=== PATIENT | female | born 1955 | race Caucasian/White ===

== ENCOUNTER → 2017-09-02 | Outpatient (CLI) | payer OTHER ==
[2017-09-02 18:45] LABS: CH 30.3; CHCM 31.8; HCT 41.8 % (34.0-46.0); HDW 2.35; HGB 13.4 gm/dL (11.4-16.0); MCH 30.7 pg (25.0-35.0); MCV 95.9 fL (80.0-100.0); Mean Platelet Volume 8.1; RBC 4.36 m/uL (3.80-5.40); RDW 14.2 % (11.5-15.5); WBC 7.1 k/uL (3.8-10.6)
== END | disposition home or self-care (01) ==
LOC: MMGSC 11:56
PROVIDERS: ATTEND Obstetrics & Gynecology
DX: E03.9 Hypothyroidism, unspecified (principal); R53.83 Other fatigue; N95.1 Menopausal and female climacteric states
CPT/HCPCS: 36415; 82306; 82607; 82670; 83001; 84403; 84439; 84443; 85027; 86376

== ENCOUNTER → 2017-10-13 | Outpatient (CLI) | payer OTHER ==
--- NOTE | 2017-10-14 08:43 | MM ---
Reason for exam: screening (asymptomatic). Last mammogram was performed 1 year and 10 months ago. History: Patient is postmenopausal. Physical Findings: A clinical breast exam by your physician is recommended on an annual basis and results should be correlated with mammographic findings. MG Screening Mammo w CAD Bilateral CC and MLO view(s) were taken. Prior study comparison: December 21, 2015, mammogram, performed at [facility]. There are scattered fibroglandular densities. Finding: There are typically benign dystrophic, round, linear calcifications in the left breast. There is no discrete abnormality. ASSESSMENT: Benign, BI-RAD 2 RECOMMENDATION: Routine screening mammogram of both breasts in 1 year.
== END | disposition home or self-care (01) ==
LOC: RADMAMWWP 14:44
PROVIDERS: ATTEND Obstetrics & Gynecology
DX: Z12.31 Encounter for screening mammogram for malignant neoplasm of breast (principal)
CPT/HCPCS: 77067

== ENCOUNTER → 2018-02-24 | Outpatient (CLI) | payer OTHER ==
[2018-02-24 12:44] LABS: T4, Free (Free Thyroxine) 1.17 ng/dL (0.78-2.19)
== END | disposition home or self-care (01) ==
LOC: LABWHC1 11:32
PROVIDERS: ATTEND Obstetrics & Gynecology
DX: E03.9 Hypothyroidism, unspecified (principal)
CPT/HCPCS: 36415; 84439; 84443

== ENCOUNTER → 2021-01-28 | Outpatient (CLI) | payer MEDICARE ==
--- NOTE | 2021-01-28 12:16 | BD ---
EXAMINATION TYPE: Axial Bone Density DATE OF EXAM: 01/28/2021 COMPARISON: NONE CLINICAL HISTORY: 65-year-old female postmenopausal screening Height: 63 IN Weight: 152 LBS RISK FACTORS HISTORY OF: Active: YES Postmenopausal woman: PARTIAL HYST AGE 55 MEDICATIONS: Thyroid Medications: YES Which medication: Levothyroxine How Long: SINCE 1991 Additional Medications: LEVOTHYROXINE, CALCIUM, VIT D, EXAM MEASUREMENTS: Bone mineral densitometry was performed using the [employer] System. Bone mineral density as measured about the Lumbar spine is: ----- L1-L4(G/cm2): 0.977 T Score Values are as follows: ----- L2: -2.7 ----- L3: -1.5 ----- L4: -1.1 ----- L1-L4: -1.7 Bone mineral density BASELINE Bone mineral density about the R hip (g/cm2): 0.768 Bone mineral density about the L hip (g/cm2): 0.754 T Score values are as follows: -----R Neck: -1.9 -----L Neck: -2.0 -----R Total: -1.1 -----L Total: -1.1 Bone mineral density BASELINE IMPRESSION: Osteopenia (T Score between -2.5 and -1). There is slightly increased risk of fracture and the patient may be considered for treatment. Re-Screen 2-5 years. NOTE: T-SCORE=SD OF THE YOUNG ADULT MEAN.
--- NOTE | 2021-01-29 09:04 | MM ---
Reason for exam: screening (asymptomatic). Last mammogram was performed 3 years and 4 months ago. History: Patient is postmenopausal. Physical Findings: A clinical breast exam by your physician is recommended on an annual basis and results should be correlated with mammographic findings. MG 3D Screening Mammo W/Cad Bilateral CC and MLO view(s) were taken. Prior study comparison: October 13, 2017, bilateral MG screening mammo w CAD. December 21, 2015, mammogram, performed at [facility]. There are scattered fibroglandular densities. There are benign appearing round linear calcifications bilaterally. There is no discrete abnormality. ASSESSMENT: Benign, BI-RAD 2 RECOMMENDATION: Routine screening mammogram of both breasts in 1 year.
== END | disposition home or self-care (01) ==
LOC: RADMAMWWP 07:21
PROVIDERS: ATTEND Nurse Practitioner Family
DX: Z12.31 Encounter for screening mammogram for malignant neoplasm of breast (principal); M85.89 Other specified disorders of bone density and structure, multiple sites; Z78.0 Asymptomatic menopausal state
CPT/HCPCS: 77063; 77067; 77080

== ENCOUNTER 2021-05-18 19:44 | Emergency (ER) | payer MEDICARE ==
[2021-05-18 20:08] VITALS: BP 168/96; PULSE 93; RESP 16; TEMP 98.1
[2021-05-18] MEDS ORDERED: TOPICAL SKIN ADHESIVE 1 EACH AMP TOPICAL ONE (20:17)
[2021-05-18] MEDS ORDERED: LIDOCAINE/EPINEPHR/TETRACAINE 5 ML BOTTLE TOPICAL ONE (20:17)
--- NOTE | 2021-05-18 20:24 | ED ---
Wound/Laceration HPI - General Chief Complaint: Wound/Laceration Stated Complaint: l hand laceration Time Seen by Provider: 05/18/21 20:00 Source: patient Mode of arrival: ambulatory Limitations: no limitations - History of Present Illness Initial Comments: 66 year-old female patient presents to the emergency department for evaluation of left thumb laceration. Patient states she was cleaning a knife when she accidentally cut herself. Patient states there was a lot of blood so she put on a bandaid and came in to be evaluated. She reports mild pain to the finger. Denies any numbness or tingling. States last tetanus was in 2019. She denies any other injuries or concerns. - Related Data Allergies Allergy/AdvReac Type Severity Reaction Status Date / Time No Known Allergies Allergy Verified 05/18/21 20:01 Review of Systems ROS Statement: Those systems with pertinent positive or pertinent negative responses have been documented in the HPI. ROS Other: All systems not noted in ROS Statement are negative. Past Medical History Past Medical History: No Reported History History of Any Multi-Drug Resistant Organisms: None Reported Past Surgical History: Hysterectomy, Orthopedic Surgery Past Psychological History: No Psychological Hx Reported Smoking Status: Never smoker Past Alcohol Use History: Rare Past Drug Use History: None Reported General Exam Limitations: no limitations General appearance: alert, in no apparent distress, other (Physical well- developed, well-nourished adult female patient in no acute distress. Vital signs upon presentation are temperature 98.1F, pulse 93, respirations 16, blood pressure 168/96, pulse ox 93% on room air.) Respiratory exam: Present: normal lung sounds bilaterally. Absent: respiratory distress, wheezes, rales, rhonchi, stridor Cardiovascular Exam: Present: regular rate, normal rhythm, normal heart sounds. Absent: systolic murmur, diastolic murmur, rubs, gallop, clicks Extremities exam: Present: full ROM, normal capillary refill, other (2cm laceration noted to the dorsal left thum. Does involve proximal nail fold, but not the nail. Skin is pink, warm, and dry. Cap refill <3 seconds. Radial pulse 2+). Absent: normal inspection, tenderness, pedal edema, joint swelling, calf tenderness Neurological exam: Present: alert, oriented X3, CN II-XII intact Psychiatric exam: Present: normal affect, normal mood Skin exam: Present: warm, dry, intact, normal color. Absent: rash Course Vital Signs 05/18/21 20:01 Temperature 98.1 F Pulse Rate 93 Respiratory 16 Rate Blood Pressure 168/96 O2 Sat by Pulse 93 L Oximetry Procedures - Laceration Laceration #1 Consent Obtained: verbal consent Indication: laceration Site: hand (left thumb) Description: linear Depth: simple, single layer Type of Sutures: other (exofin skin adhesive) Patient Tolerated Procedure: well, no complications Medical Decision Making - Medical Decision Making 66 year-old female patient presented to the emergency department today for evaluation of laceration to left thumb. Physical examination did reveal small 1 cm laceration to the left thumb involving the proximal nail fold but not the nail. Wound was cleansed, I'll let solution applied. Repaired with skin adhesive glue. Did apply a finger splint. To be discharged home with the primary care physician for recheck in 1-2 days. We discussed signs or symptoms of infection. Return parameters were discussed in detail. She verbalizes understanding and agrees with this plan. My attending is Dr. Mueller. Disposition Clinical Impression: Laceration of left thumb Disposition: HOME SELF-CARE Condition: Good Instructions (If sedation given, give patient instructions): Laceration (ED), Skin Adhesive Care (ED) Additional Instructions: Follow-up with the primary care physician for recheck in 1-2 days. Monitor for signs or symptoms of infection including but not limited to redness, drainage of pus, fever, or chills. Return for any new, worsening, or concerning symptoms. Is patient prescribed a controlled substance at d/c from ED?: No Referrals: Meredith Guo MD [Primary Care Provider] - 1-2 days Time of Disposition: 20:58
== END 2021-05-18 21:05 | disposition home or self-care (01) ==
LOC: EC 19:44
DX: S61.012A Laceration without foreign body of left thumb without damage to nail, initial encounter (principal); W26.0XXA Contact with knife, initial encounter
CPT/HCPCS: 12001; 99283

== ENCOUNTER → 2021-07-09 | Outpatient (CLI) | payer MEDICARE ==
--- NOTE | 2021-07-09 14:45 | US ---
EXAMINATION TYPE: US thyroid st tissue head/neck DATE OF EXAM: 07/09/2021 COMPARISON: NONE CLINICAL HISTORY: 66-year-old female R22.0 SWELLING/MASS. TECHNIQUE: Multiple sonographic images of the thyroid gland are obtained. FINDINGS: GLAND SIZE: Right Lobe: 3.7 x 1.3 x 1.0 cm Overall Parenchyma: heterogenous Left Lobe: 3.1 x 0.9 x 0.9 cm Overall Parenchyma: heterogeneous Isthmus Thickness: 0.2 cm NODULES RIGHT: # of nodules measured on right: 0 LEFT: # of nodules measured on left: 0 ISTHMUS: # of nodules measured in the isthmus: 0 Bilateral neck scanned, no evidence of lymphadenopathy. IMPRESSION: Slightly heterogeneous and small size of the thyroid gland may reflect chronic hypothyroidism. Clinic ally correlate. No discrete nodule.
--- NOTE | 2021-07-09 14:57 | US ---
EXAMINATION TYPE: US extremity nonvasc mass RT DATE OF EXAM: 07/09/2021 COMPARISON: NONE CLINICAL HISTORY: 66-year-old female R22.1 MASS. TECHNIQUE: Targeted ultrasound examination along the right calf at the palpable site. FINDINGS: At right calf palpable is a 1.4 x 0.6 x 1.3cm hypoechoic oval, circumscribed mass. This is located in the subcutaneous adipose layer and shows no internal vascularity. Additional history provided by the ob gyn physician assistant: Patient has had previous lipomas removed from this ar ea when she was 4 and when she was 13. IMPRESSION: Patient's palpable site along the inferior right calf corresponds to a 1.4 cm oval mass in the subcut aneous adipose layer. The patient reports having previous lipomas removed from this area as a child. Current findings also likely represent a subcutaneous lipoma. Recommend 6 month follow-up ultrasound to reassess. If the area is symptomatic or growth is noted, surgical evaluation can be considered.
== END | disposition home or self-care (01) ==
LOC: RADUSWWP 12:46
PROVIDERS: ATTEND Family Medicine
DX: R22.0 Localized swelling, mass and lump, head (principal); R22.1 Localized swelling, mass and lump, neck
CPT/HCPCS: 76536

== ENCOUNTER → 2022-05-21 | Outpatient (CLI) | payer MEDICARE ==
--- NOTE | 2022-05-22 09:20 | US ---
EXAMINATION TYPE: US extremity nonvasc complete RT DATE OF EXAM: 05/21/2022 COMPARISON: 07/09/2021 CLINICAL HISTORY: 67-year-old female D17.20 LIPOMA OF LOWER EXT. Right ankle palpable area. Patient r eports the previous posteriorly located lipoma having been excised in the interval. TECHNIQUE: Targeted scanning anterior aspect of the right ankle at patient's area of concern. FINDINGS: No discrete lesion is identified in the superficial tissues at the patient directed palpable site aryan ng the anterior ankle and anterior aspect of the distal leg. IMPRESSION: Unable to identify a discrete lesion in the superficial tissues along the patient directed palpable s ite anterior right ankle. This can be followed clinically. If any enlargement is noted, the area coul d be rescanned.
== END | disposition home or self-care (01) ==
LOC: RADUSWWP 15:24
PROVIDERS: ATTEND Internal Medicine
DX: D17.20 Benign lipomatous neoplasm of skin and subcutaneous tissue of unspecified limb (principal)

== ENCOUNTER → 2023-01-19 | Outpatient (CLI) | payer MEDICARE ==
--- NOTE | 2023-01-19 22:54 | BD ---
EXAMINATION TYPE: Axial Bone Density DATE OF EXAM: 01/19/2023 CLINICAL HISTORY: 67 year old Female. ICD-10 CODE: M85.80 Disorder of bone Height: 63.5 Weight: 147.8 FRAX RISK QUESTIONS: Alcohol (3 or more units per day): no Family History (Parent hip fracture): no Glucocorticoids (More than 3mos): no (Ex: prednisone, prednisolone, methylprednisolone, dexamethasone, and hydrocortisone). History of Fracture in Adulthood: no Secondary Osteoporosis: 1. Type 1 Diabetes: no 2. Hyperthyroidism: no 3. Menopause before 45: no 4. Malnutrition: no 5. Chronic liver disease: no Rheumatoid Arthritis: no Current Tobacco Use: no RISK FACTORS HISTORY OF: Surgery to Spine/Hip(right/left)/Wrist (right/left): no Family History of Osteoporosis: no Active: yes Diet low in dairy products/other sources of calcium: yes Postmenopausal woman: yes Lost more than 2 inches in height since high school: no MEDICATIONS: Thyroid Medications: thyroid How Lon years Additional History: EXAM MEASUREMENTS: Bone mineral densitometry was performed using the [employer]. Bone mineral density as measured about the Lumbar spine is: ----- L1-L4(G/cm2): 0.977 T Score Values are as follows: ----- L1: -1.9 ----- L2: -1.9 ----- L3: -1.7 ----- L4: -1.5 ----- L1-L4: -1.7 Z Score Values are as follows: ----- L1: -0.4 ----- L2: -0.3 ----- L3: -0.1 ----- L4: 0.0 ----- L1-L4: -0.2 Bone mineral density has: 0.0 % since study of: 01.28.2021 Bone mineral density about the R hip (g/cm2): 0.8450.874 Bone mineral density about the L hip (g/cm2): 0.874 T Score values are as follows: -----R Neck: -1.9 -----L Neck: -1.9 -----R Total: -1.3 -----L Total: -1.1 Z Score values are as follows: -----R Neck: -0.4 -----L Neck: -0.4 -----R Total: 0.0 -----L Total: 0.2 Bone mineral density has: decreased -0.2 % since study of: 01.28.2021 FRAX%s: The graph provided illustrates a 11.4% chance for a major osteoporotic fx and a 2.0% chance f or the hips probability for fx in 10 years time. IMPRESSION: Osteopenia (T Score between -2.5 and -1). There is slightly increased risk of fracture and the patient may be considered for treatment. Re-Screen 2-5 years. NOTE: T-SCORE=SD OF THE YOUNG ADULT MEAN.
--- NOTE | 2023-01-20 09:57 | MM ---
Reason for Exam: Screening (asymptomatic). Last screening mammogram was performed 12 month(s) ago. Patient History: Menarche at age 13. First Full-Term at age 17. Hysterectomy at age 55. Postmenopausal. Sister had breast cancer, age 68. Risk Values: Natasha 5 year model risk: 2.9%. NCI Lifetime model risk: 9.3%. Prior Study Comparison: 10/13/2017 Bilateral Screening Mammogram, [facility]. 01/28/2021 Bilateral Screening Mammogram, [facility]. 01/16/2022 Bilateral Screening Mammogram, [facility]. Tissue Density: There are scattered fibroglandular densities. Findings: Analyzed By CAD. New microcalcifications inner central left breast. Additional views are recommended to include spot magnification compression views. No evidence for mass or distortion. Overall Assessment: Incomplete: need additional imaging evaluation, BI-RAD 0 Management: Diagnostic Mammogram of the left breast. A clinical breast exam by your physician is recommended on an annual basis and results should be correlated with mammographic findings. Electronically signed and approved by: Tc Jesus M.D. Radiologis
== END | disposition home or self-care (01) ==
LOC: RADMAMWWP 15:53
PROVIDERS: ATTEND Internal Medicine
DX: Z12.31 Encounter for screening mammogram for malignant neoplasm of breast (principal); M85.89 Other specified disorders of bone density and structure, multiple sites; Z78.0 Asymptomatic menopausal state; Z80.3 Family history of malignant neoplasm of breast
CPT/HCPCS: 77063; 77067; 77080

== ENCOUNTER → 2023-01-26 | Outpatient (CLI) | payer MEDICARE ==
--- NOTE | 2023-01-26 15:19 | MM ---
Reason for Exam: Additional evaluation requested from abnormal screening. Last screening mammogram was performed less than 1 month ago. Patient History: Menarche at age 13. First Full-Term at age 17. Hysterectomy at age 55. Postmenopausal. Sister had breast cancer, age 68. Risk Values: Natasha 5 year model risk: 2.9%. NCI Lifetime model risk: 9.3%. Prior Study Comparison: 01/28/2021 Bilateral Screening Mammogram, [facility]. 01/16/2022 Bilateral Screening Mammogram, [facility]. 01/19/2023 Bilateral MG 3D screening mammo w/cad, [facility]. Tissue Density: Left: There are scattered fibroglandular densities. Findings: Analyzed By CAD. Indeterminate microcalcifications left breast central position 5 cm from the nipple. Overall Assessment: Suspicious, BI-RAD 4 Management: Stereotactic Core Biopsy of the left breast. A clinical breast exam by your physician is recommended on an annual basis and results should be correlated with mammographic findings. This exam should not preclude additional follow-up of suspicious palpable abnormalities. Results were given to the patient verbally at the time of exam. Electronically signed and approved by: Tc Jesus M.D. Radiologis
== END | disposition home or self-care (01) ==
LOC: RADMAMWWP 10:04
PROVIDERS: ATTEND Internal Medicine
DX: R92.8 Other abnormal and inconclusive findings on diagnostic imaging of breast (principal); Z78.0 Asymptomatic menopausal state; Z80.3 Family history of malignant neoplasm of breast
CPT/HCPCS: 77065; G0279; 77061

== ENCOUNTER → 2023-02-19 | Day surgery (SDC) | payer MEDICARE ==
[2023-02-19 07:22] VITALS: RESP 12
--- NOTE | 2023-02-19 08:04 | P.GSHP ---
History of Present Illness H&P Date: 02/19/23 Chief Complaint: Microcalcifications of concern in the left breast Larisa is a 67-year-old white female seen in consultation for Dr. Schuler regarding microcalcifications of concern in the left breast. She underwent a bilateral mammogram on 01-19-23 after which additional views of the left breast [place] [id number]. On these additional views indeterminate microcalcifications in the left breast central position were identified. These were considered suspicious and stereotactic core biopsy was recommended. She does not feel any lumps masses or nodules of concern in either breast. She has never had any surgery on her breast. She is not complaining of any trauma or infection in her breast. She is not complaining of any nipple discharge or skin changes. caffiene: 1 cup/day nicotien: none chocolate: occasional BCP: 4 years hormoens: none Family History: a family of 12 children with 6 sisters two sisters with breast cancer, dx in their 60's, no genetic testing father: lung cancer Hormonal History: menarche: 13 , breast fed: no, age at first : 18 menopause: hysterectomy at 57 left ovaries no cancer Surgical History: hysterectomy ankle right Medical History: hypothyroid SociaL History: nicotine: none alcohol: none drugs: none - Constitutional Constitutional: Denies chills, Denies fever - EENT Eyes: denies blurred vision, denies pain Ears: deny: decreased hearing, tinnitus Ears, nose, mouth and throat: Denies headache, Denies sore throat - Breasts Breasts: bilateral: as per HPI - Cardiovascular Cardiovascular: Denies chest pain, Denies shortness of breath - Respiratory Respiratory: Denies cough, Denies 7 - Gastrointestinal Gastrointestinal: Denies abdominal pain, Denies diarrhea, Denies nausea, Denies vomiting - Genitourinary (Female) Genitourinary: Denies dysuria, Denies hematuria - Menstruation Menstruation: Reports postmenopausal - Musculoskeletal Musculoskeletal: Reports myalgias - Integumentary Integumentary: Denies pruritus, Denies rash - Neurological Neurological: Denies numbness, Denies weakness - Psychiatric Psychiatric: Denies anxiety, Denies depression - Endocrine Endocrine: Reports as per HPI - Hematologic/Lymphatic Comment: none - Allergic/Immunologic Allergic/Immunologic: Reports as per HPI Past Medical History Past Medical History: Thyroid Disorder History of Any Multi-Drug Resistant Organisms: None Reported Past Surgical History: Hysterectomy, Orthopedic Surgery Additional Past Surgical History / Comment(s): "fatty tumor" removed from leg at age 13 Past Anesthesia/Blood Transfusion Reactions: No Reported Reaction Past Psychological History: No Psychological Hx Reported Smoking Status: Never smoker Past Alcohol Use History: Rare Past Drug Use History: None Reported Medications and Allergies Home Medications Medication Instructions Recorded Confirmed Type Levothyroxine Sodium [Synthroid] 125 mcg PO DAILY 02/05/23 02/19/23 History Biotin [Biotin Disolve] 5,000 mcg PO DAILY 02/19/23 02/19/23 History Calcium Carbonate [Calcium] 600 mg PO DAILY 02/19/23 02/19/23 History Cholecalciferol [Vitamin D3 (25 25 mcg PO DAILY 02/19/23 02/19/23 History Mcg = 1000 Iu)] Cyanocobalamin (Vitamin B-12) 1,000 mcg PO DAILY 02/19/23 02/19/23 History [Vitamin B-12] Multivitamin [Multivitamins Adult 1 each PO DAILY 02/19/23 02/19/23 History Gummies] Zinc Gluconate [Zinc] 50 mg PO DAILY 02/19/23 02/19/23 History Allergies Allergy/AdvReac Type Severity Reaction Status Date / Time No Known Allergies Allergy Verified 02/19/23 07:32 Surgical - Exam Vital Signs Temp Pulse Resp BP 98 F 69 12 120/70 02/19/23 07:10 02/19/23 07:10 02/19/23 07:10 02/19/23 07:10 - General no distress - Eyes normal ocular movement - Neck trachea midline - Respiratory normal respiratory effort, clear to auscultation - Cardiovascular Rhythm: regular Heart Sounds: normal: S1, S2 - Abdomen Abdomen: soft, non tender, no guarding, no rigid, no rebound - Integumentary normal turgor - Neurologic no disoriented, no combative - Musculoskeletal normal gait, normal posture - Psychiatric oriented to time, oriented to person, oriented to place, speech is normal, memory intact Breast Exam: BRA: 34D Inspection: Bilateral grade 2/3 ptosis Palpation: Right breast: Multiple positional exam fibrocystic changes no dominant masses or nodules of concern Right axilla: No adenopathy of concern Left breast: Multiple positional exam fibrocystic changes no dominant masses or notches of concern Left axilla: No adenopathy of concern Results Mammogram reviewed with Dr. Ruiz Assessment and Plan Assessment: Impression: Microcalcifications of concern left breast Hypothyroidism Plan: Stereotactic core biopsy left breast Risks and benefits of the procedure discussed with the patient. Risks include but are not limited to bleeding, infection, reaction to the anesthetic. If the specimen were felt to be discordant and further tissue acquisition may be necessary. The patient understands and wishes to proceed. Cc: Dr. Schuler
[2023-02-19 08:44] VITALS: BP 145/70; PULSE 63; TEMP 98.7
--- NOTE | 2023-02-20 07:54 | MM ---
Date of Procedure: 02/19/23 Preoperative Diagnosis: Microcalcifications of concern in left breast Postoperative Diagnosis: Same Procedure(s) Performed: Left breast stereotactic core biopsy Anesthesia: local Surgeon: Maria Esther Villegas Pathology: other (Breast tissue, radiographic specimen reveals microcalcifications of concern) Condition: stable Disposition: same day Indications for Procedure: Microcalcifications left breast central portion of concern Operative Findings: Radiographic of specimen reveals microcalcifications of concern Description of Procedure: The patient is a 67-year-old white female seen in consultation for Dr. Schuler regarding new microcalcifications in the midportion of the left breast. The patient was recommended to undergo a left breast stereotactic core biopsy. Risk and benefits of the procedure were discussed with the patient. Risks include but are not limited to bleeding, infection, reaction to the anesthetic. If the tissue specimen were felt to be discordant then further tissue acquisition may be necessary. The patient was taken to the stereotactic core biopsy room. She was positioned prone on the lo rad table. A medial to lateral approach was utilized. A metal container maker film was obtained. The calcifications of concern were identified. The breast was prepped using Betadine. The lesion was targeted. 20 mL of half percent lidocaine with epinephrine and 10 mL of 1% lidocaine plain were used to anesthetize the area of concern. A 9-gauge vacuum-assisted core rotating biopsy needle was driven to the correct coordinates. A prefire film was obtained. The needle was noted to be in the correct location. The needle was fired. A post- fire film was obtained. The needle was noted to be in the correct location. Eight core biopsy specimens were obtained. Radiograph of the specimens revealed the area of concern had been sampled with calcifications in the specimen. A secure john top hat clip was placed. Radiograph revealed the clip to be in the correct location. The patient tolerated the procedure in stable condition. The specimen was sent to pathology. The patient will follow up with Dr. Yanez next week. [facility]US[facility]aren
== END ==
LOC: RADMAMWWP 07:05
PROVIDERS: ATTEND Surgery
DX: D05.12 Intraductal carcinoma in situ of left breast (principal); N64.1 Fat necrosis of breast; E03.9 Hypothyroidism, unspecified; F10.20 Alcohol dependence, uncomplicated; Z80.0 Family history of malignant neoplasm of digestive organs; Z79.890 Hormone replacement therapy
CPT/HCPCS: 88305; 88342; 88341; 19081; A4648; J2001

== ENCOUNTER → 2023-02-19 | Outpatient (CLI) | payer MEDICARE ==
[2023-02-19 07:37] VITALS: BP 113/70; PULSE 65; RESP 16; TEMP 98.4
--- NOTE | 2023-02-19 08:37 | P.PCN ---
Date of Procedure: 02/19/23 Preoperative Diagnosis: Microcalcifications of concern in left breast Postoperative Diagnosis: Same Procedure(s) Performed: Left breast stereotactic core biopsy Anesthesia: local Surgeon: Maria Esther Villegas Pathology: other (Breast tissue, radiographic specimen reveals microcalcifications of concern) Condition: stable Disposition: same day Indications for Procedure: Microcalcifications left breast central portion of concern Operative Findings: Radiographic of specimen reveals microcalcifications of concern Description of Procedure: The patient is a 67-year-old white female seen in consultation for Dr. Schuler regarding new microcalcifications in the midportion of the left breast. The patient was recommended to undergo a left breast stereotactic core biopsy. Risk and benefits of the procedure were discussed with the patient. Risks include but are not limited to bleeding, infection, reaction to the anesthetic. If the tissue specimen were felt to be discordant then further tissue acquisition may be necessary. The patient was taken to the stereotactic core biopsy room. She was positioned prone on the lo rad table. A medial to lateral approach was utilized. A military pay clerk film was obtained. The calcifications of concern were identified. The breast was prepped using Betadine. The lesion was targeted. 20 mL of half percent lidocaine with epinephrine and 10 mL of 1% lidocaine plain were used to anesthetize the area of concern. A 9-gauge vacuum-assisted core rotating biopsy needle was driven to the correct coordinates. A prefire film was obtained. The needle was noted to be in the correct location. The needle was fired. A post- fire film was obtained. The needle was noted to be in the correct location. Eight core biopsy specimens were obtained. Radiograph of the specimens revealed the area of concern had been sampled with calcifications in the specimen. A secure john top hat clip was placed. Radiograph revealed the clip to be in the correct location. The patient tolerated the procedure in stable condition. The specimen was sent to pathology. The patient will follow up with Dr. Yanez next week.
== END ==
LOC: WWCWWP 07:05
PROVIDERS: ATTEND Surgery
DX: R92.0 Mammographic microcalcification found on diagnostic imaging of breast (principal)

== ENCOUNTER → 2023-03-05 | Outpatient (CLI) | payer MEDICARE ==
[2023-03-05 10:05] VITALS: BP 134/71; PULSE 68; RESP 16; TEMP 97.7
--- NOTE | 2023-03-05 10:37 | P.PN ---
Subjective Progress Note Date: 03/05/23 Principal diagnosis: DCIS left breast Larisa is a 67-year-old white female seen in consultation for Dr. Schuler regarding microcalcifications of concern in the left breast. She underwent a bilateral mammogram on 01-19-23 after which additional views of the left [place] [id number]. On these additional views indeterminate microcalcifications in the left breast central position were identified. These were considered suspicious and stereotactic core biopsy was recommended. She does not feel any lumps masses or nodules of concern in either breast. She has never had any surgery on her breast. She is not complaining of any trauma or infection in her breast. She is not complaining of any nipple discharge or skin changes. Sterotactic core biopsy was done on 02-19-23 and was + for DCIS, ER+, Pr-. She tolerated the biopsy without difficulty. caffiene: 1 cup/day nicotien: none chocolate: occasional BCP: 4 years hormoens: none Family History: a family of 12 children with 6 sisters two sisters with breast cancer, dx in their 60's, no genetic testing father: lung cancer Hormonal History: menarche: 13 , breast fed: no, age at first : 18 menopause: hysterectomy at 57 left ovaries no cancer Surgical History: hysterectomy ankle right Medical History: hypothyroid SociaL History: nicotine: none alcohol: none drugs: none - Constitutional Constitutional: Denies chills, Denies fever - EENT Eyes: denies blurred vision, denies pain Ears: deny: decreased hearing, tinnitus Ears, nose, mouth and throat: Denies headache, Denies sore throat - Breasts Breasts: bilateral: as per HPI - Cardiovascular Cardiovascular: Denies chest pain, Denies shortness of breath - Respiratory Respiratory: Denies cough, Denies 7 - Gastrointestinal Gastrointestinal: Denies abdominal pain, Denies diarrhea, Denies nausea, Denies vomiting - Genitourinary (Female) Genitourinary: Denies dysuria, Denies hematuria - Menstruation Menstruation: Reports postmenopausal - Musculoskeletal Musculoskeletal: Reports myalgias - Integumentary Integumentary: Denies pruritus, Denies rash - Neurological Neurological: Denies numbness, Denies weakness - Psychiatric Psychiatric: Denies anxiety, Denies depression - Endocrine Endocrine: Reports as per HPI - Hematologic/Lymphatic Comment: none - Allergic/Immunologic Allergic/Immunologic: Reports as per HPI Past Medical History Past Medical History: Thyroid Disorder History of Any Multi-Drug Resistant Organisms: None Reported Past Surgical History: Hysterectomy, Orthopedic Surgery Additional Past Surgical History / Comment(s): "fatty tumor" removed from leg at age 13 Past Anesthesia/Blood Transfusion Reactions: No Reported Reaction Past Psychological History: No Psychological Hx Reported Smoking Status: Never smoker Past Alcohol Use History: Rare Past Drug Use History: None Reported Medications and Allergies Home Medications Medication Instructions Recorded Confirmed Type Levothyroxine Sodium [Synthroid] 125 mcg PO DAILY 02/05/23 02/19/23 History Biotin [Biotin Disolve] 5,000 mcg PO DAILY 02/19/23 02/19/23 History Calcium Carbonate [Calcium] 600 mg PO DAILY 02/19/23 02/19/23 History Cholecalciferol [Vitamin D3 (25 25 mcg PO DAILY 02/19/23 02/19/23 History Mcg = 1000 Iu)] Cyanocobalamin (Vitamin B-12) 1,000 mcg PO DAILY 02/19/23 02/19/23 History [Vitamin B-12] Multivitamin [Multivitamins Adult 1 each PO DAILY 02/19/23 02/19/23 History Gummies] Zinc Gluconate [Zinc] 50 mg PO DAILY 02/19/23 02/19/23 History Allergies Allergy/AdvReac Type Severity Reaction Status Date / Time No Known Allergies Allergy Verified 02/19/23 07:32 Objective - Vital Signs Vital signs: Vital Signs Temp 97.7 F 03/05/23 10:03 Pulse 68 03/05/23 10:03 Resp 16 03/05/23 10:03 BP 134/71 03/05/23 10:03 Pulse Ox 98 03/05/23 10:03 FiO2 Intake & Output 03/04/23 03/05/23 03/05/23 18:59 06:59 18:59 Weight 67.132 kg - Constitutional General appearance: Present: cooperative - EENT Eyes: Present: EOMI ENT: Present: hearing grossly normal - Neck Neck: Present: normal ROM - Respiratory Respiratory: bilateral: CTA - Cardiovascular Rhythm: regular Heart sounds: normal: S1, S2 - Integumentary Integumentary Comment(s): Biopsy site left breast clean and dry, no evidence of any ecchymosis or hematoma Integumentary: Present: normal turgor - Musculoskeletal Musculoskeletal: Present: gait normal - Psychiatric Psychiatric: Present: A&O x's 3, appropriate affect, intact judgment & insight - Additional findings Additional findings: Breast examination from [address] Bra size 34D Inspection: Bilateral grade 2/3 ptosis Palpation: Right breast: Multi-positional exam fibrocystic changes no dominant masses or nodules of concern Right axilla: No adenopathy of concern Left breast: Multi-positional exam fibrocystic changes no dominant masses or nodules of concern Left axilla: No adenopathy of concern Assessment and Plan Assessment: Impression: Left breast DCIS ER positive ID negative Plan: Presentation of case at tumor board Cc: Dr. Schuler
== END ==
LOC: WWCWWP 09:54
PROVIDERS: ATTEND Surgery
DX: D05.12 Intraductal carcinoma in situ of left breast (principal); E03.9 Hypothyroidism, unspecified; Z90.710 Acquired absence of both cervix and uterus; Z79.890 Hormone replacement therapy

== ENCOUNTER → 2023-04-10 | Outpatient (CLI) | payer MEDICARE ==
--- NOTE | 2023-04-10 10:13 | P.PN ---
Subjective Progress Note Date: 04/10/23 Principal diagnosis: DCIS left breast Subjective Progress Note Date: 04-10-23 Principal diagnosis: DCIS left breast Larisa is a 67-year-old white female seen in consultation for Dr. Schuler regarding microcalcifications of concern in the left breast. She underwent a bilateral mammogram on 01-19-23 after which additional views of the left breast was recommended. This was performed on . On these additional views indeterminate microcalcifications in the left breast central position were identified. These were considered suspicious and stereotactic core biopsy was recommended. She does not feel any lumps masses or nodules of concern in either breast. She has never had any surgery on her breast. She is not complaining of any trauma or infection in her breast. She is not complaining of any nipple discharge or skin changes. Sterotactic core biopsy was done on 02-19-23 and was + for DCIS, ER+, Pr-. She tolerated the biopsy without difficulty. 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 note radiation oncology 03-10-23 reviewed caffiene: 1 cup/day nicotien: none chocolate: occasional BCP: 4 years hormoens: none Family History: a family of 12 children with 6 sisters two sisters with breast cancer, dx in their 60's, no genetic testing father: lung cancer Hormonal History: menarche: 13 , breast fed: no, age at first : 18 menopause: hysterectomy at 57 left ovaries no cancer Surgical History: hysterectomy ankle right Medical History: hypothyroid SociaL History: nicotine: none alcohol: none drugs: none - Constitutional Constitutional: Denies chills, Denies fever - EENT Eyes: denies blurred vision, denies pain Ears: deny: decreased hearing, tinnitus Ears, nose, mouth and throat: Denies headache, Denies sore throat - Breasts Breasts: bilateral: as per HPI - Cardiovascular Cardiovascular: Denies chest pain, Denies shortness of breath - Respiratory Respiratory: Denies cough - Gastrointestinal Gastrointestinal: Denies abdominal pain, Denies diarrhea, Denies nausea, Denies vomiting - Genitourinary (Female) Genitourinary: Denies dysuria, Denies hematuria - Menstruation Menstruation: Reports postmenopausal - Musculoskeletal Musculoskeletal: Reports myalgias - Integumentary Integumentary: Denies pruritus, Denies rash - Neurological Neurological: Denies numbness, Denies weakness - Psychiatric Psychiatric: Denies anxiety, Denies depression - Endocrine Endocrine: Reports as per HPI - Hematologic/Lymphatic Comment: none - Allergic/Immunologic Allergic/Immunologic: Reports as per HPI Past Medical History Past Medical History: Thyroid Disorder History of Any Multi-Drug Resistant Organisms: None Reported Past Surgical History: Hysterectomy, Orthopedic Surgery Additional Past Surgical History / Comment(s): "fatty tumor" removed from leg at age 13 Past Anesthesia/Blood Transfusion Reactions: No Reported Reaction Past Psychological History: No Psychological Hx Reported Smoking Status: Never smoker Past Alcohol Use History: Rare Past Drug Use History: None Reported Medications and Allergies Home Medications Medication Instructions Recorded Confirmed Type Levothyroxine Sodium [Synthroid] 125 mcg PO DAILY 02/05/23 02/19/23 History Biotin [Biotin Disolve] 5,000 mcg PO DAILY 02/19/23 02/19/23 History Calcium Carbonate [Calcium] 600 mg PO DAILY 02/19/23 02/19/23 History Cholecalciferol [Vitamin D3 (25 25 mcg PO DAILY 02/19/23 02/19/23 History Mcg = 1000 Iu)] Cyanocobalamin (Vitamin B-12) 1,000 mcg PO DAILY 02/19/23 02/19/23 History [Vitamin B-12] Multivitamin [Multivitamins Adult 1 each PO DAILY 02/19/23 02/19/23 History Gummies] Zinc Gluconate [Zinc] 50 mg PO DAILY 02/19/23 02/19/23 History Allergies Allergy/AdvReac Type Severity Reaction Status Date / Time No Known Allergies Allergy Verified 02/19/23 07:32 Objective - Constitutional General appearance: Present: cooperative - EENT Eyes: Present: EOMI ENT: Present: hearing grossly normal - Neck Neck: Present: normal ROM - Respiratory Respiratory: bilateral: CTA - Cardiovascular Rhythm: regular Heart sounds: normal: S1, S2 - Gastrointestinal General gastrointestinal: Present: soft - Integumentary Integumentary: Present: normal turgor - Musculoskeletal Musculoskeletal: Present: gait normal - Psychiatric Psychiatric: Present: A&O x's 3, appropriate affect, intact judgment & insight - Additional findings Additional findings: Bra size 34D Inspection: Bilateral grade 2/3 ptosis Palpation: Right breast: Multi-positional exam fibrocystic changes no dominant masses or nodules of concern Right axilla: No adenopathy of concern Left breast: Multi-positional exam fibrocystic changes no dominant masses or nodules of concern Left axilla: No adenopathy of concern Assessment and Plan Assessment: Impression: Left breast DCIS ER positive [place] negative Presentation of case at tumor board on 03-17-23 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 Schuler Treatment options range from Surgery: Lumpectomy plus radiation, versus mastectomy plus or minus reconstruction. Additionally we have talked about sentinel node biopsy and the fact that this is high-grade DCIS. The patient would like to have this done. Radiation oncology, we have discussed this Medical oncology: We have discussed chemotherapy, hormonal therapy, and immunotherapy. We have discussed that if this is noninvasive that she will most likely only have hormone therapy. Cc: Dr. Schuler
[2023-04-10 10:14] VITALS: BP 134/67; PULSE 66; RESP 16; TEMP 98
== END ==
LOC: WWCWWP 09:15
PROVIDERS: ATTEND Surgery
DX: D05.12 Intraductal carcinoma in situ of left breast (principal); R06.02 Shortness of breath; E03.9 Hypothyroidism, unspecified; Z17.0 Estrogen receptor positive status [ER+]; Z80.3 Family history of malignant neoplasm of breast; Z79.890 Hormone replacement therapy; Z90.710 Acquired absence of both cervix and uterus

== ENCOUNTER 2023-04-21 10:53 | Day surgery (SDC) | payer MEDICARE ==
[2023-04-16 08:50] VITALS: BMI 25.8
[~2023-04-21 10:53] MED LIST: DEXAMETHASONE SOD PHOSPHATE 4 MG/ML 1 ML VIAL IV ONE; HEPARIN SODIUM,PORCINE/PF 5,000 UNIT/0.5 ML SYRINGE SQ PRN; HYDROmorphone 0.5 MG/0.5 ML SYRINGE IVP PRN; LACTATED RINGERS 1,000 ML IV SCH; LIDOCAINE 1% (10MG/ML) FOR IV START INTRADERMA PRN; ONDANSETRON 4 MG/2 ML VIAL IVP ONE; Pre Op ABX Message 1 EACH MISC MISCELLANE ONE; droPERidol 5 MG/2 ML VIAL IVP ONE
[2023-04-21] MEDS ORDERED: ALPRAZolam 0.25 MG TAB ONE (12:09)
[2023-04-21] MEDS ORDERED: ALPRAZolam 0.25 MG TAB PO ONE (12:11)
[2023-04-21] MEDS ORDERED: LIDOCAINE 1% INJ 10MG/ML (20 ML MDV) SQ ONE ×2 (12:54→14:00)
--- NOTE | 2023-04-21 13:02 | P.NAPBC ---
NAPBC Queries - NAPBC Queries Was patient's case review presented at [facility] tumor board? If no, comment.: Yes Was patient's pathology reviewed at [facility]? If no, comment.: Yes Was breast conservation surgery offered? If no, comment.: Yes Was sentinel node biopsy offered? If no, comment.: Yes Was diagnosis confirmed by percutaneous core biopsy? If no, comment.: Yes Is patient mastectomy patient?: No Was a preop referral to reconstructive surgeon offered?: No Clinical Stage: DCIS
[2023-04-21] MEDS ORDERED: fentaNYL (PF) 50 MCG/ML 2 ML AMP ONE (14:19)
[2023-04-21] MEDS ORDERED: PROPOFOL 10 MG/ML 20 ML VIAL IV ONE (14:19)
[2023-04-21] MEDS ORDERED: HYDROmorphone (PF) 1 MG/ML ONE (14:19)
[2023-04-21] MEDS ORDERED: LIDOCAINE 2% INJ 20 MG/ML (2 ML VIAL) ONE (14:19)
[2023-04-21] MEDS ORDERED: SUCCINYLCHOLINE CHLORIDE 200 MG/10 ML VIAL IV ONE (14:19)
[2023-04-21] MEDS ORDERED: MIDAZOLAM 2 MG/2 ML VIAL ONE (14:19)
--- NOTE | 2023-04-21 14:30 | NM ---
EXAMINATION TYPE: NM sentinel node injection DATE OF EXAM: 04/21/2023 COMPARISON: NONE CLINICAL INDICATION: Female, 68 years old with history of LEFT BREAST CA; TECHNIQUE AND FINDINGS: The procedure of sentinel lymph node injection was explained to the patient. The benefits, alternatives, and risks were discussed. An informed consent was then obtained. Overlying skin is cleaned with sterile alcohol. Following this, 493 uCi [id number] Tilmanocept was inject ed in the upper outer aspect of the left nipple intradermally. The patient tolerated the procedure well without any immediate complication. The patient was kept in the radiology department for short stay after the procedure and then taken to surgery for surgical p rocedure what is presumed intraoperative gamma probe will be used for sentinel lymph node detection. IMPRESSION: Left breast radiotracer injection for sentinel node localization as above.
--- NOTE | 2023-04-21 15:58 | P.OP ---
Date of Procedure: 04/21/23 Preoperative Diagnosis: Left breast DCIS Postoperative Diagnosis: Same Procedure(s) Performed: Left breast needle localization lumpectomy, onco- plastic tissue transfer 45 cm, sentinel node biopsy Anesthesia: ANAYA Surgeon: Maria Esther Villegas Estimated Blood Loss (ml): 5 IV fluids (ml): 600 Pathology: other (Breast tissue, lymph node axilla) Condition: stable Disposition: same day Indications for Procedure: Left breast ductal carcinoma in situ on core biopsy Operative Findings: Fibrofatty breast tissue Description of Procedure: Patient was seen initially in the radiology department where 2 needles were placed for localization of the area of concern in the left breast. Additionally the patient was injected in the periareolar region with radiotracer. The patient was then brought to the operative suite. In the operative suite the neoprobe was used to interrogate the axilla after induction of anesthesia. Radioactivity was identified. The left breast and axilla were prepped and draped in a sterile fashion. Using the neoprobe the area of greatest radioactivity was identified and incision was made into the axilla. Dissection revealed a radioactive lymph node. This was excised. The 10 second count of the lymph node was 1765, the background 10 second count was 12. Hemostasis was attained using electrocautery device as well as the Harmonic scalpel. The wound was well irrigated. The deep tissues were closed using 3-0 Vicryl suture. The skin was closed using 4-0 Monocryl. Steri-Strips applied. The area of the breast was approached. An incision was made between the superior and medial localizing needles. Dissection was carried down to the shaft of both needles. The surrounding tissue was excised dissecting directly under the skin anteriorly as well as onto the pectoralis muscle posteriorly. Surrounding tissue was excised. The cavity of excision was 6 cm x 3 cm. Radiograph of the specimen revealed that the area of concern had been removed including the clip. An inferior pedicle of 5 x 3 cm was performed. A superior pedicle of 6 x 2 cm was formed. Total tissue transfer was 45 cm. After we were assured that hemostasis was attained the wound was well irrigated. Titanium clips were placed. Surgicel in powder form was placed. The 2 pillars were brought together using 3-0 Vicryl suture. The subcutaneous tissue was closed using 3-0 Vicryl suture. The skin was closed using 4-0 Monocryl. The patient tolerated the procedure in stable condition. All instrument and sponge counts were correct at the end of the case.
--- NOTE | 2023-04-21 16:00 | P.DS ---
Providers Attending physician: Maria Esther Villegas Primary care physician: William Schuler MD Plan - Discharge Summary Discharge Rx Participant: No New Discharge Prescriptions: New HYDROcodone/APAP 5-325MG [[place] 5] 1 - 2 each PO Q6HR PRN #20 tab PRN Reason: Pain No Action Zinc Gluconate [Zinc] 50 mg PO DAILY Multivitamin [Multivitamins Adult Gummies] 1 each PO DAILY Cholecalciferol [Vitamin D3 (25 Mcg = 1000 Iu)] 25 mcg PO DAILY Calcium Carbonate [Calcium] 600 mg PO DAILY Biotin [Biotin Disolve] 5,000 mcg PO DAILY Levothyroxine Sodium [Synthroid] 125 mcg PO DAILY Cyanocobalamin (Vitamin B-12) [Vitamin B-12] 1,000 mcg PO DAILY Discharge Medication List Levothyroxine Sodium [Synthroid] 125 mcg PO DAILY 02/05/23 [History] Biotin [Biotin Disolve] 5,000 mcg PO DAILY 02/19/23 [History] Calcium Carbonate [Calcium] 600 mg PO DAILY 02/19/23 [History] Cholecalciferol [Vitamin D3 (25 Mcg = 1000 Iu)] 25 mcg PO DAILY 02/19/23 [History] Cyanocobalamin (Vitamin B-12) [Vitamin B-12] 1,000 mcg PO DAILY 02/19/23 [History] Multivitamin [Multivitamins Adult Gummies] 1 each PO DAILY 02/19/23 [History] Zinc Gluconate [Zinc] 50 mg PO DAILY 02/19/23 [History] HYDROcodone/APAP 5-325MG [[place] 5] 1 - 2 each PO Q6HR PRN #20 tab 04/21/23 [Rx] Follow up Appointment(s)/Referral(s): Maria Esther Villegas MD [STAFF PHYSICIAN] - 04/30/23 8:20 am Activity/Diet/Wound Care/Special Instructions: Do not drive for 24 hours after discharge, do not drive if taking narcotic pain medicine Wear bra at all times May shower after 48 hours Discharge Disposition: HOME SELF-CARE
[2023-04-21 16:13] VITALS: TEMP 97.7
[2023-04-21 16:49] VITALS: RESP 16
[2023-04-21] MEDS ORDERED: HYDROcodone/APAP 5-325MG 1 EACH TAB ONE (16:56)
[2023-04-21] MEDS ORDERED: HYDROcodone/APAP 5-325MG 1 EACH TAB PO ONE (16:58)
[2023-04-21 17:22] VITALS: BP 128/72; PULSE 72
--- NOTE | 2023-04-22 08:19 | MM ---
Electronically signed and approved by: Mario Kong, DO
== END 2023-04-21 17:41 | disposition home or self-care (01) ==
LOC: OR 10:53
PROVIDERS: ATTEND Surgery
DX: D05.12 Intraductal carcinoma in situ of left breast (principal); Z85.3 Personal history of malignant neoplasm of breast; E03.9 Hypothyroidism, unspecified; Z79.890 Hormone replacement therapy; Z79.899 Other long term (current) drug therapy
CPT/HCPCS: 19301; 38525; 14301; 88342; 88307; 88341; 76098; 19281; 38792; C1819; A9520; J2250; J0330; J1100; J2405; J2001 ×2; J3010; J1170; J2704; J1644

== ENCOUNTER → 2023-04-30 | Outpatient (CLI) | payer MEDICARE ==
[2023-04-30 08:38] VITALS: BP 127/79; PULSE 64; RESP 17; TEMP 97.8
--- NOTE | 2023-04-30 08:44 | P.PN ---
Progress Note - Text Progress Note Date: 04/30/23 Larisa is a 68 year old white female status post a left breast lumpectomy and SNB. Her pathology showed 4mm high grade DCIs 6 mm from closest margin. SNB (-). She tolerated the surgery without difficulty. Physical Exam: Lungs: clear Heart: Regular rate and rhythm Incision left axilla and breast clean and dry, mild erythema medial aspect of incision left breast Impression: Patient doing well status post left breast lumpectomy and sentinel node biopsy margins negative, sentinel lymph node negative, closest margin 6 mm plan: Keflex secondary to mild erythema medial aspect of incision Appointment medical oncology Appointment radiation oncology Follow-up here in 4 months Follow-up sooner any questions or concerns CC:Dr. Schuler
== END ==
LOC: WWCWWP 08:16
PROVIDERS: ATTEND Surgery
DX: Z04.9 Encounter for examination and observation for unspecified reason (principal); D05.12 Intraductal carcinoma in situ of left breast; Z90.12 Acquired absence of left breast and nipple

== ENCOUNTER 2023-06-02 09:38 | Emergency (ER) | payer MEDICARE ==
[2023-06-02 09:44] VITALS: TEMP 98.4
--- NOTE | 2023-06-02 10:38 | ED ---
Back Pain HPI - General Chief Complaint: Back Pain/Injury Stated Complaint: R side/arm pain Time Seen by Provider: 06/02/23 10:10 Source: patient Limitations: no limitations - History of Present Illness Initial Comments: 68-year-old female presents to the ED with a chief complaint of shoulder pain. Patient states 4 days ago when she woke up started to experience right shoulder pain. Pain was initially intermittent and has become more constant nature. Pain is dull and achy in nature. Pain improves upon stretching her arm behind her neck and stretching. States that her boyfriend is in agreement T and notes that he advised he should have her present to the ED for further evaluation. Patient also notes that him nausea today however notes that she usually gets nauseous when she does not eat and reports she has only had a banana today. No other complaints. Denies chest pain or shortness of breath. Abdominal pain. Denies changes in bladder or bowel habits. - Related Data Home Medications Medication Instructions Recorded Confirmed Levothyroxine Sodium [Synthroid] 125 mcg PO DAILY 02/05/23 04/30/23 Biotin [Biotin Disolve] 5,000 mcg PO DAILY 02/19/23 04/30/23 Calcium Carbonate [Calcium] 600 mg PO DAILY 02/19/23 04/30/23 Cholecalciferol [Vitamin D3 (25 25 mcg PO DAILY 02/19/23 04/30/23 Mcg = 1000 Iu)] Cyanocobalamin (Vitamin B-12) 1,000 mcg PO DAILY 02/19/23 04/30/23 [Vitamin B-12] Multivitamin [Multivitamins Adult 1 each PO DAILY 02/19/23 04/30/23 Gummies] Zinc Gluconate [Zinc] 50 mg PO DAILY 02/19/23 04/30/23 Previous Rx's Medication Instructions Recorded HYDROcodone/APAP 5-325MG [[place] 5] 1 - 2 each PO Q6HR PRN #20 tab 04/21/23 Cephalexin [Keflex] 500 mg PO Q6HR 5 Days #20 cap 04/30/23 Allergies Allergy/AdvReac Type Severity Reaction Status Date / Time No Known Allergies Allergy Verified 06/02/23 09:44 Review of Systems ROS Statement: Those systems with pertinent positive or pertinent negative responses have been documented in the HPI. ROS Other: All systems not noted in ROS Statement are negative. Past Medical History Past Medical History: Cancer, Thyroid Disorder Additional Past Medical History / Comment(s): LEFT BREAST CANCER History of Any Multi-Drug Resistant Organisms: None Reported Past Surgical History: Hysterectomy Additional Past Surgical History / Comment(s): "fatty tumor" removed from leg at age 4 and 13 Past Anesthesia/Blood Transfusion Reactions: No Reported Reaction Past Psychological History: No Psychological Hx Reported Smoking Status: Never smoker Past Alcohol Use History: Rare Past Drug Use History: None Reported - Past Family History Mother Family Medical History: No Reported History General Exam Limitations: no limitations General appearance: alert, in no apparent distress Eye exam: Present: normal appearance Neck exam: Present: normal inspection Respiratory exam: Present: normal lung sounds bilaterally Cardiovascular Exam: Present: regular rate, normal rhythm GI/Abdominal exam: Present: soft (No tenderness to palpation. No rebound guarding or rigidity.) Extremities exam: Present: other (Negative Open/empty can test. Negative Hawkin's test. Strength and sensation equal and intact in bilateral upper extremities. Radial pulses 2+. Reproducible pain on palpation of the right scapula.) Neurological exam: Present: alert, oriented X3 Skin exam: Present: warm, dry Course Vital Signs 06/02/23 06/02/23 09:42 11:31 Temperature 98.4 F Pulse Rate 72 57 L Respiratory 20 16 Rate Blood Pressure 171/80 145/79 O2 Sat by Pulse 98 97 Oximetry Medical Decision Making - Medical Decision Making Was pt. sent in by a medical professional or institution (Dr. PA, SENIOR NETWORK SECURITY ENGINEER, urgent care, hospital, or intermediate...) When possible be specific @ -No Did you speak to anyone other than the patient for history (EMS, parent, family, police, friend...)? What history was obtained from this source @ -No Did you review nursing and triage notes (agree or disagree)? Why? @ -I reviewed and agree with nursing and triage notes Were old charts reviewed (outside hosp., previous admission, EMS record, old EKG, old radiological studies, urgent care reports/EKG's, intermediate records)? Report findings @ -No old charts were reviewed Differential Diagnosis (chest pain, altered mental status, abdominal pain women, abdominal pain men, vaginal bleeding, weakness, fever, dyspnea, syncope, headache, dizziness, GI bleed, back pain, seizure, CVA, palpatations, mental health, musculoskeletal)? @ -Differential Musculoskeletal Muscular strain, contusion, ligament sprain, fracture, arthritis, septic arthritis, bursitis, cellulitis, muscle spasm, nerve compression, DVT, arterial occlusion, herpes zoster, electrolyte abnormality, tumor.... This is not meant to be in all inclusive list EKG interpreted by me (3pts min.). @ -As above X-rays interpreted by me (1pt min.). @ -Chest x-ray and x-ray of the right shoulder shows no acute process. CT interpreted by me (1pt min.). @ -None done U/S interpreted by me (1pt. min.). @ -None done What testing was considered but not performed or refused? (CT, X-rays, U/S, labs)? Why? @ -None What meds were considered but not given or refused? Why? @ -None Did you discuss the management of the patient with other professionals (professionals i.e. , PA, SENIOR NETWORK SECURITY ENGINEER, lab, RT, psych nurse, administrator social welfare, retail presentation specialist, teacher, correction officer head, bilingual case manager)? Give summary @ -No Was smoking cessation discussed for >3mins.? @ -No Was critical care preformed (if so, how long)? @ -No Were there social determinants of health that impacted care today? How? (Homelessness, low income, unemployed, alcoholism, drug addiction, transportation, low edu. Level, literacy, decrease access to med. care, snf, rehab)? @ -No Was there de-escalation of care discussed even if they declined (Discuss DNR or withdrawal of care, Hospice)? DNR status @ -No What co-morbidities impacted this encounter? (DM, HTN, Smoking, COPD, CAD, Cancer, CVA, ARF, Chemo, Hep., AIDS, mental health diagnosis, sleep apnea, morbid obesity)? @ -None Was patient admitted / discharged? Hospital course, mention meds given and route, prescriptions, significant lab abnormalities, going to OR and other pertinent info. @ -Discharge. Imaging shows no acute process. Laboratory studies including chemistry panel, troponin, amylase, and lipase unremarkable. Symptoms likely musculoskeletal in nature. Unlikely referred pain. Advised NSAID/Tylenol rest. Discharged home in stable condition. Discussed return precautions with patient who verbalizes agreement. Undiagnosed new problem with uncertain prognosis? @ -No Drug Therapy requiring intensive monitoring for toxicity (Heparin, Nitro, Ins ulin, Cardizem)? @ -No Were any procedures done? @ -No Diagnosis/symptom? @ -Right shoulder pain Acute, or Chronic, or Acute on Chronic? @ -Acute Uncomplicated (without systemic symptoms) or Complicated (systemic symptoms)? @ -Uncomplicated Side effects of treatment? @ -No Exacerbation, Progression, or Severe Exacerbation? @ -No Poses a threat to life or bodily function? How? (Chest pain, [place], [place], pneumonia, PE, COPD, DKA, ARF, appy, cholecystitis, CVA, Diverticulitis, Homicidal, Suicidal, threat to staff... and all critical care pts) @ -No - Lab Data Result diagrams: 06/02/23 10:55 06/02/23 10:55 Lab Results 06/02/23 06/02/23 06/02/23 Range/Units 10:55 10:55 10:55 WBC 5.7 (3.8-10.6) k/uL RBC 3.77 L (3.80-5.40) m/uL Hgb 12.9 (11.4-16.0) gm/dL Hct 36.8 (34.0-46.0) % MCV 97.7 (80.0-100.0) fL MCH 34.3 (25.0-35.0) pg MCHC 35.1 (31.0-37.0) g/dL RDW 13.4 (11.5-15.5) % Plt Count 241 (150-450) k/uL MPV 8.2 Neutrophils % 56 % Lymphocytes % 30 % Monocytes % 8 % Eosinophils % 2 % Basophils % 1 % Neutrophils # 3.2 (1.3-7.7) k/uL Lymphocytes # 1.7 (1.0-4.8) k/uL Monocytes # 0.5 (0-1.0) k/uL Eosinophils # 0.1 (0-0.7) k/uL Basophils # 0.0 (0-0.2) k/uL Sodium 140 (137-145) mmol/L Potassium 4.4 (3.5-5.1) mmol/L Chloride 108 H (98-107) mmol/L Carbon Dioxide 25 (22-30) mmol/L Anion Gap 7 mmol/L BUN 11 (7-17) mg/dL Creatinine 0.46 L (0.52-1.04) mg/dL Est GFR (CKD-EPI)AfAm >90 (>60 ml/min/1.73 sqM) Est GFR (CKD-EPI)NonAf >90 (>60 ml/min/1.73 sqM) Glucose 93 (74-99) mg/dL Calcium 9.2 (8.4-10.2) mg/dL Total Bilirubin 0.5 (0.2-1.3) mg/dL AST 32 (14-36) U/L ALT 29 (4-34) U/L Alkaline Phosphatase 58 (38-126) U/L Troponin I <0.012 (0.000-0.034) ng/mL Total Protein 7.3 (6.3-8.2) g/dL Albumin 4.3 (3.5-5.0) g/dL Amylase 49 (30-110) U/L Lipase 102 (23-300) U/L - EKG Data EKG Comments: EKG shows a sinus rhythm at [address]-T wave changes. OH 135, QRS 118, QT/QTc 411/434. Disposition Clinical Impression: Shoulder pain, right Disposition: HOME SELF-CARE Condition: Good Instructions (If sedation given, give patient instructions): Shoulder Pain (ED) Additional Instructions: Please return to the Emergency Department if symptoms worsen or any other concerns. Is patient prescribed a controlled substance at d/c from ED?: No Referrals: William Schuler MD [Primary Care Provider] - 1-2 days Time of Disposition: 12:12
[2023-06-02 11:17] LABS: Basophils % (A) 1 %; Eosinophils # (A) 0.1 k/uL (0-0.7); Eosinophils % (A) 2 %; HCT 36.8 % (34.0-46.0); HGB 12.9 gm/dL (11.4-16.0); Lymphocytes # (A) 1.7 k/uL (1.0-4.8); Lymphocytes % (A) 30 %; MCH 34.3 pg (25.0-35.0); MCHC 35.1 g/dL (31.0-37.0); MCV 97.7 fL (80.0-100.0); Mean Platelet Volume 8.2; Monocytes # (A) 0.5 k/uL (0-1.0); Monocytes % (A) 8 %; Neutrophils # (A) 3.2 k/uL (1.3-7.7); Neutrophils % (A) 56 %; Platelet Count 241 k/uL (150-450); RBC 3.77 m/uL (3.80-5.40); RDW 13.4 % (11.5-15.5); WBC 5.7 k/uL (3.8-10.6)
[2023-06-02 11:27] LABS: ALT 29 U/L (4-34); AST 32 U/L (14-36); African American GFR (CKD) >90 (>60 ml/min/1.73 sqM); Albumin 4.3 g/dL (3.5-5.0); Alkaline Phosphatase 58 U/L (38-126); Amylase 49 U/L (30-110); Anion Gap 7 mmol/L; Blood Urea Nitrogen 11 mg/dL (7-17); Calcium 9.2 mg/dL (8.4-10.2); Carbon Dioxide 25 mmol/L (22-30); Chloride 108 mmol/L (98-107); Glucose 93 mg/dL (74-99); Lipase 102 U/L (23-300); Non-African American GFR(CKD) >90 (>60 ml/min/1.73 sqM); Potassium 4.4 mmol/L (3.5-5.1); Sodium 140 mmol/L (137-145); Total Bilirubin 0.5 mg/dL (0.2-1.3); Total Protein 7.3 g/dL (6.3-8.2)
--- NOTE | 2023-06-02 11:35 | XR ---
EXAMINATION TYPE: XR chest 2V DATE OF EXAM: 06/02/2023 11:21 AM COMPARISON: None TECHNIQUE: XR chest 2V Frontal and lateral views of the chest. CLINICAL INDICATION:Female, 68 years old with history of r shoulder pain; FINDINGS: Lungs/Pleura: There is no evidence of pleural effusion, focal consolidation, or pneumothorax. Senesc ent parenchymal change. Pulmonary vascularity: Unremarkable. Heart/mediastinum: Cardiomediastinal silhouette is unremarkable. Musculoskeletal: No acute osseous pathology. Mild degenerative changes of the thoracic spine. IMPRESSION: No acute cardiopulmonary disease/process.
--- NOTE | 2023-06-02 11:36 | XR ---
EXAMINATION TYPE: XR shoulder complete RT DATE OF EXAM: 06/02/2023 11:20 AM INDICATION: Patient age:Female; 68 years old; Reason for study: r shoulder pain; COMPARISON: None TECHNIQUE: The right shoulder was examined in AP, internally rotated and scapular Y projections. . FINDINGS: No evidence of acute osseous pathology, joint dislocation, or soft tissue swelling. The remaining por tions of the visualized chest are unremarkable. IMPRESSION: No acute osseous pathology.
[2023-06-02 13:34] VITALS: BP 154/84; PULSE 59; RESP 18
== END 2023-06-02 13:34 | disposition home or self-care (01) ==
LOC: EC 09:38
DX: M25.511 Pain in right shoulder (principal); E07.9 Disorder of thyroid, unspecified; Z79.890 Hormone replacement therapy
CPT/HCPCS: 36415; 71046; 80053; 82150; 83690; 84484; 85025; 99284

== ENCOUNTER → 2023-09-17 | Outpatient (CLI) | payer MEDICARE ==
--- NOTE | 2023-09-17 11:19 | P.PN ---
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 Schuler regarding microcalcifications of concern in the left breast. She underwent a bilateral mammogram on 01-19-23 after which additional views of the left breast was recommended. This was performed on . On these additional views indeterminate microcalcifications in the left breast central position were identified. These were considered suspicious and stereotactic core biopsy was recommended. She does not feel any lumps masses or nodules of concern in either breast. She has never had any surgery on her breast. She is not complaining of any trauma or infection in her breast. She is not complaining of any nipple discharge or skin changes. Sterotactic core biopsy was done on 02-19-23 and was + for DCIS, ER+, Pr-. She tolerated the biopsy without difficulty. 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 She started on Raloxiphen and is tolerating this without difficulty, 60mg once daily. She is not complaining of any new lumps masses or nodules of concern. note radiation oncology 07-30-23 reviewed note medical oncology 05-18-23 reviewed caffiene: 1 cup/day nicotien: none chocolate: occasional BCP: 4 years hormoens: none Family History: a family of 12 children with 6 sisters two sisters with breast cancer, dx in their 60's, no genetic testing father: lung cancer Hormonal History: menarche: 13 , breast fed: no, age at first : 18 menopause: hysterectomy at 57 left ovaries no cancer Surgical History: hysterectomy ankle right left lumpectomy and SNB for DCIS Medical History: hypothyroid SociaL History: nicotine: none alcohol: none drugs: none - Constitutional Constitutional: Denies chills, Denies fever - EENT Eyes: denies blurred vision, denies pain Ears: deny: decreased hearing, tinnitus Ears, nose, mouth and throat: Denies headache, Denies sore throat - Breasts Breasts: bilateral: as per HPI - Cardiovascular Cardiovascular: Denies chest pain, Denies shortness of breath - Respiratory Respiratory: Denies cough - Gastrointestinal Gastrointestinal: Denies abdominal pain, Denies diarrhea, Denies nausea, Denies vomiting - Genitourinary (Female) Genitourinary: Denies dysuria, Denies hematuria - Menstruation Menstruation: Reports postmenopausal - Musculoskeletal Musculoskeletal: Reports myalgias - Integumentary Integumentary: Denies pruritus, Denies rash - Neurological Neurological: Denies numbness, Denies weakness - Psychiatric Psychiatric: Denies anxiety, Denies depression - Endocrine Endocrine: Reports as per HPI - Hematologic/Lymphatic Comment: none - Allergic/Immunologic Allergic/Immunologic: Reports as per HPI Past Medical History Past Medical History: Thyroid Disorder History of Any Multi-Drug Resistant Organisms: None Reported Past Surgical History: Hysterectomy, Orthopedic Surgery Additional Past Surgical History / Comment(s): "fatty tumor" removed from leg at age 13 Past Anesthesia/Blood Transfusion Reactions: No Reported Reaction Past Psychological History: No Psychological Hx Reported Smoking Status: Never smoker Past Alcohol Use History: Rare Past Drug Use History: None Reported Medications and Allergies Home Medications Medication Instructions Recorded Confirmed Type Levothyroxine Sodium [Synthroid] 125 mcg PO DAILY 02/05/23 02/19/23 History Biotin [Biotin Disolve] 5,000 mcg PO DAILY 02/19/23 02/19/23 History Calcium Carbonate [Calcium] 600 mg PO DAILY 02/19/23 02/19/23 History Cholecalciferol [Vitamin D3 (25 25 mcg PO DAILY 02/19/23 02/19/23 History Mcg = 1000 Iu)] Cyanocobalamin (Vitamin B-12) 1,000 mcg PO DAILY 02/19/23 02/19/23 History [Vitamin B-12] Multivitamin [Multivitamins Adult 1 each PO DAILY 02/19/23 02/19/23 History Gummies] Zinc Gluconate [Zinc] 50 mg PO DAILY 02/19/23 02/19/23 History Allergies Allergy/AdvReac Type Severity Reaction Status Date / Time No Known Allergies Allergy Verified 02/19/23 07:32 Objective - Vital Signs Vital signs: Vital Signs Temp 98.2 F 09/17/23 11:00 Pulse 69 09/17/23 11:00 Resp 18 09/17/23 11:00 BP 131/75 09/17/23 11:00 Pulse Ox 96 09/17/23 11:00 FiO2 Intake & Output 09/16/23 09/17/23 09/17/23 18:59 06:59 18:59 Weight 66.678 kg - Constitutional General appearance: Present: cooperative - EENT Eyes: Present: EOMI ENT: Present: hearing grossly normal - Neck Neck: Present: normal ROM - Respiratory Respiratory: bilateral: CTA - Cardiovascular Heart sounds: normal: S1, S2 - Integumentary Integumentary: Present: normal turgor - Musculoskeletal Musculoskeletal: Present: gait normal - Psychiatric Psychiatric: Present: A&O x's 3, appropriate affect, intact judgment & insight - Additional findings Additional findings: Bra size 34D Inspection: Bilateral grade 2/3 ptosis Palpation: Right breast: Multi-positional exam fibrocystic changes no dominant masses or nodules of concern Right axilla: No adenopathy of concern Left breast: Multi-positional exam fibrocystic changes no dominant masses or nodules of concern; post op and radiation changes; infection and medial aspect of the breast Left axilla: No adenopathy of concern Assessment and Plan Assessment: Impression: Left breast DCIS ER positive [place] negative; that is post left breast lumpectomy, sentinel node biopsy, radiation therapy Patient on raloxifene 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 Schuler
[2023-09-17 11:26] VITALS: BP 131/75; PULSE 69; RESP 18; TEMP 98.2
== END ==
LOC: WWCWWP 10:31
PROVIDERS: ATTEND Surgery
DX: E03.9 Hypothyroidism, unspecified (principal); Z79.890 Hormone replacement therapy; Z90.710 Acquired absence of both cervix and uterus

== ENCOUNTER → 2024-01-25 | Outpatient (CLI) | payer MEDICARE ==
--- NOTE | 2024-01-25 08:13 | MM ---
Reason for Exam: Hx of breast cancer, conservation therapy. Last screening mammogram was performed 12 month(s) ago. Patient History: Menarche at age 13. First Full-Term at age 17. Hysterectomy at age 55. Postmenopausal. Breast cancer, left, age 67. Breast cancer, left, age 68. 04/22/2023, Lumpectomy on the Left side. 04/21/2023, Malignant MG pre op needle loc LT on the left side. 02/19/2023, Malignant MG stereo VAD BX LT on the left side. 2022, Radiation Therapy on the left side. Sister had breast cancer, age 68. Tissue Density: There are scattered areas of fibroglandular density. Findings: Analyzed By CAD. The pattern is symmetrical. There is a large postsurgical collection of increased density within the left subareolar breast. Multiple surgical clips are within the posterior aspect of this oval circumscribed density. Benign-appearing calcification is present. There is mild diffuse thickening through the skin. Left breast is smaller than the right Breast:No suspicious groups of microcalcifications, spiculated or lobular masses, architectural distortion or other secondary signs of malignancy are mammographically apparent. Overall Assessment: Benign, BI-RAD 2 Management: Diagnostic Mammogram of both breasts in 1 year. A negative mammogram report should not preclude additional follow up of suspicious palpable abnormalities. Patient should continue monthly self breast exam. A clinical breast exam by your physician is recommended on an annual basis and results should be correlated with mammographic findings. Electronically signed and approved by: Edward Lowery D.O. Radiologis
== END | disposition home or self-care (01) ==
LOC: RADMAMWWP 07:47
PROVIDERS: ATTEND Surgery
DX: R92.323 Mammographic fibroglandular density, bilateral breasts (principal); Z85.3 Personal history of malignant neoplasm of breast; Z78.0 Asymptomatic menopausal state; Z80.3 Family history of malignant neoplasm of breast
CPT/HCPCS: 77066; G0279; 77062

== ENCOUNTER → 2024-01-28 | Outpatient (CLI) | payer MEDICARE ==
--- NOTE | 2024-01-28 14:59 | P.PN ---
Subjective Progress Note Date: 01/28/24 Principal diagnosis: DCIS left breast [id number] DCIS left breast Larisa is a 68-year-old white female seen in consultation for Dr. Schuler regarding microcalcifications of concern in the left breast. She underwent a bilateral mammogram on 01-19-23 after which additional views of the left breast was recommended. This was performed on . On these additional views indeterminate microcalcifications in the left breast central position were identified. These were considered suspicious and stereotactic core biopsy was recommended. She does not feel any lumps masses or nodules of concern in either breast. She has never had any surgery on her breast. She is not complaining of any trauma or infection in her breast. She is not complaining of any nipple discharge or skin changes. Sterotactic core biopsy was done on 02-19-23 and was + for DCIS, ER+, Pr-. She tolerated the biopsy without difficulty. 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 Her pathology showed a 4 mm DCIS and (-) SNB, She completed radiation on 07-01-23. She started on Raloxiphen and is tolerating this without difficulty, 60mg once daily. She is not complaining of any new lumps masses or nodules of concern. Bilateral mammogram 01-25-24 BIRAD 2 caffiene: 1 cup/day nicotien: none chocolate: occasional BCP: 4 years hormoens: none Family History: a family of 12 children with 6 sisters two sisters with breast cancer, dx in their 60's, no genetic testing father: lung cancer Hormonal History: menarche: 13 , breast fed: no, age at first : 18 menopause: hysterectomy at 57 left ovaries no cancer Surgical History: hysterectomy ankle right left lumpectomy and SNB for DCIS Medical History: hypothyroid SociaL History: nicotine: none alcohol: none drugs: none - Constitutional Constitutional: Denies chills, Denies fever - EENT Eyes: denies blurred vision, denies pain Ears: deny: decreased hearing, tinnitus Ears, nose, mouth and throat: Denies headache, Denies sore throat - Breasts Breasts: bilateral: as per HPI - Cardiovascular Cardiovascular: Denies chest pain, Denies shortness of breath - Respiratory Respiratory: Denies cough - Gastrointestinal Gastrointestinal: Denies abdominal pain, Denies diarrhea, Denies nausea, Denies vomiting - Genitourinary (Female) Genitourinary: Denies dysuria, Denies hematuria - Menstruation Menstruation: Reports postmenopausal - Musculoskeletal Musculoskeletal: Reports myalgias - Integumentary Integumentary: Denies pruritus, Denies rash - Neurological Neurological: Denies numbness, Denies weakness - Psychiatric Psychiatric: Denies anxiety, Denies depression - Endocrine Endocrine: Reports as per HPI - Hematologic/Lymphatic Comment: none - Allergic/Immunologic Allergic/Immunologic: Reports as per HPI Past Medical History Past Medical History: Thyroid Disorder History of Any Multi-Drug Resistant Organisms: None Reported Past Surgical History: Hysterectomy, Orthopedic Surgery Additional Past Surgical History / Comment(s): "fatty tumor" removed from leg at age 13 Past Anesthesia/Blood Transfusion Reactions: No Reported Reaction Past Psychological History: No Psychological Hx Reported Smoking Status: Never smoker Past Alcohol Use History: Rare Past Drug Use History: None Reported Medications and Allergies Home Medications Medication Instructions Recorded Confirmed Type Levothyroxine Sodium [Synthroid] 125 mcg PO DAILY 02/05/23 02/19/23 History Biotin [Biotin Disolve] 5,000 mcg PO DAILY 02/19/23 02/19/23 History Calcium Carbonate [Calcium] 600 mg PO DAILY 02/19/23 02/19/23 History Cholecalciferol [Vitamin D3 (25 25 mcg PO DAILY 02/19/23 02/19/23 History Mcg = 1000 Iu)] Cyanocobalamin (Vitamin B-12) 1,000 mcg PO DAILY 02/19/23 02/19/23 History [Vitamin B-12] Multivitamin [Multivitamins Adult 1 each PO DAILY 02/19/23 02/19/23 History Gummies] Zinc Gluconate [Zinc] 50 mg PO DAILY 02/19/23 02/19/23 History Allergies Allergy/AdvReac Type Severity Reaction Status Date / Time No Known Allergies Allergy Verified 02/19/23 07:32 Objective - Vital Signs Vital signs: Vital Signs Temp 98.1 F 01/28/24 14:47 Pulse 70 01/28/24 14:47 Resp 16 01/28/24 14:47 BP 134/80 01/28/24 14:47 Pulse Ox 96 01/28/24 14:47 FiO2 Intake & Output 01/27/24 01/28/24 01/28/24 18:59 06:59 18:59 Weight 65.771 kg - Constitutional General appearance: Present: cooperative - EENT Eyes: Present: EOMI ENT: Present: hearing grossly normal - Neck Neck: Present: normal ROM - Respiratory Respiratory: bilateral: CTA - Cardiovascular Rhythm: regular Heart sounds: normal: S1, S2 - Integumentary Integumentary: Present: normal turgor - Musculoskeletal Musculoskeletal: Present: gait normal - Psychiatric Psychiatric: Present: A&O x's 3, appropriate affect, intact judgment & insight - Additional findings Additional findings: Bra size 34D Inspection: Bilateral grade 2/3 ptosis, asymmetry of the breast related to left breast lumpectomy and radiation treatment Palpation: Right breast: Multi-positional exam fibrocystic changes no dominant masses or nodules of concern Right axilla: No adenopathy of concern Left breast: Multi-positional exam fibrocystic changes no dominant masses or nodules of concern; post op and radiation changes with some fullness at the prior lumpectomy site Left axilla: No adenopathy of concern Assessment and Plan Assessment: Impression: Left breast DCIS ER + ID -; She is status post left breast lumpectomy, sentinel node biopsy, radiation therapy Patient on raloxifene 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 Schuler
[2024-01-28 15:12] VITALS: BP 134/80; PULSE 70; RESP 16; TEMP 98.1
== END ==
LOC: WWCWWP 14:31
PROVIDERS: ATTEND Surgery
DX: R92.0 Mammographic microcalcification found on diagnostic imaging of breast (principal); R92.8 Other abnormal and inconclusive findings on diagnostic imaging of breast; D05.12 Intraductal carcinoma in situ of left breast; Z98.890 Other specified postprocedural states; Z48.817 Encounter for surgical aftercare following surgery on the skin and subcutaneous tissue; Z15.89 Genetic susceptibility to other disease; Z92.3 Personal history of irradiation; Z80.3 Family history of malignant neoplasm of breast

== ENCOUNTER → 2024-03-03 | Outpatient (CLI) | payer MEDICARE ==
--- NOTE | 2024-03-03 09:44 | P.PN ---
Subjective Progress Note Date: 03/03/24 Subjective Progress Note Date: 01/28/24 Principal diagnosis: DCIS left breast [id number] DCIS left breast Larisa is a 68-year-old white female seen in consultation for Dr. Schuler regarding microcalcifications of concern in the left breast. She underwent a bilateral mammogram on 01-19-23 after which additional views of the left breast was recommended. This was performed on . On these additional views indeterminate microcalcifications in the left breast central position were identified. These were considered suspicious and stereotactic core biopsy was recommended. She did not feel any lumps masses or nodules of concern in either breast. She had never had any surgery on her breast. She was not complaining of any trauma or infection in her breast. She was not complaining of any nipple discharge or skin changes. Sterotactic core biopsy was done on 02-19-23 and was + for DCIS, ER+, Pr-. She tolerated the biopsy without difficulty. 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 Her pathology showed a 4 mm DCIS and (-) SNB, She completed radiation on 07-01-23. She started on Raloxiphen and is tolerating this without difficulty, 60mg once daily. She is not complaining of any new lumps masses or nodules of concern., but she is able to feel an area of fullness at the lumpectomy site in the left breast Bilateral mammogram 01-25-24 BIRAD 2 Ultrasound of the left breast on 03-03-2024, this was personally reviewed with Dr. Lowery, there is concern that there is an organizing hematoma and not a total cystic component to the area of palpable fullness in the left breast caffiene: 1 cup/day nicotien: none chocolate: occasional BCP: 4 years hormoens: none Family History: a family of 12 children with 6 sisters two sisters with breast cancer, dx in their 60's, no genetic testing father: lung cancer Hormonal History: menarche: 13 , breast fed: no, age at first : 18 menopause: hysterectomy at 57 left ovaries no cancer Surgical History: hysterectomy ankle right left lumpectomy and SNB for DCIS Medical History: hypothyroid SociaL History: nicotine: none alcohol: none drugs: none - Constitutional Constitutional: Denies chills, Denies fever - EENT Eyes: denies blurred vision, denies pain Ears: deny: decreased hearing, tinnitus Ears, nose, mouth and throat: Denies headache, Denies sore throat - Breasts Breasts: bilateral: as per HPI - Cardiovascular Cardiovascular: Denies chest pain, Denies shortness of breath - Respiratory Respiratory: Denies cough - Gastrointestinal Gastrointestinal: Denies abdominal pain, Denies diarrhea, Denies nausea, Denies vomiting - Genitourinary (Female) Genitourinary: Denies dysuria, Denies hematuria - Menstruation Menstruation: Reports postmenopausal - Musculoskeletal Musculoskeletal: Reports myalgias - Integumentary Integumentary: Denies pruritus, Denies rash - Neurological Neurological: Denies numbness, Denies weakness - Psychiatric Psychiatric: Denies anxiety, Denies depression - Endocrine Endocrine: Reports as per HPI - Hematologic/Lymphatic Comment: none - Allergic/Immunologic Allergic/Immunologic: Reports as per HPI Past Medical History Past Medical History: Thyroid Disorder History of Any Multi-Drug Resistant Organisms: None Reported Past Surgical History: Hysterectomy, Orthopedic Surgery Additional Past Surgical History / Comment(s): "fatty tumor" removed from leg at age 13 Past Anesthesia/Blood Transfusion Reactions: No Reported Reaction Past Psychological History: No Psychological Hx Reported Smoking Status: Never smoker Past Alcohol Use History: Rare Past Drug Use History: None Reported Medications and Allergies Home Medications Medication Instructions Recorded Confirmed Type Levothyroxine Sodium [Synthroid] 125 mcg PO DAILY 02/05/23 02/19/23 History Biotin [Biotin Disolve] 5,000 mcg PO DAILY 02/19/23 02/19/23 History Calcium Carbonate [Calcium] 600 mg PO DAILY 02/19/23 02/19/23 History Cholecalciferol [Vitamin D3 (25 25 mcg PO DAILY 02/19/23 02/19/23 History Mcg = 1000 Iu)] Cyanocobalamin (Vitamin B-12) 1,000 mcg PO DAILY 02/19/23 02/19/23 History [Vitamin B-12] Multivitamin [Multivitamins Adult 1 each PO DAILY 02/19/23 02/19/23 History Gummies] Zinc Gluconate [Zinc] 50 mg PO DAILY 02/19/23 02/19/23 History Allergies Allergy/AdvReac Type Severity Reaction Status Date / Time No Known Allergies Allergy Verified 02/19/23 07:32 Objective - Constitutional General appearance: Present: cooperative - EENT Eyes: Present: EOMI - Neck Neck: Present: normal ROM - Respiratory Respiratory: bilateral: CTA - Cardiovascular Heart sounds: normal: S1, S2 - Integumentary Integumentary: Present: normal turgor - Psychiatric Psychiatric: Present: A&O x's 3, appropriate affect, intact judgment & insight - Additional findings Additional findings: Bra size 34D Inspection: Bilateral grade 2/3 ptosis, asymmetry of the breast related to left breast lumpectomy and radiation treatment Palpation: Right breast: Multi-positional exam fibrocystic changes no dominant masses or nodules of concern Right axilla: No adenopathy of concern Left breast: Multi-positional exam fibrocystic changes no dominant masses or nodules of concern; post op and radiation changes with some fullness at the prior lumpectomy site Left axilla: No adenopathy of concern Assessment and Plan Assessment: Impression: Left breast DCIS ER + ND -; She is status post left breast lumpectomy, sentinel node biopsy, radiation therapy Patient on raloxifene 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 Grace Cc: Dr. Schuler
[2024-03-03 10:13] VITALS: BP 158/79; PULSE 62; RESP 16; TEMP 98.2
== END ==
LOC: WWCWWP 08:05
PROVIDERS: ATTEND Surgery
DX: R92.8 Other abnormal and inconclusive findings on diagnostic imaging of breast (principal); R92.0 Mammographic microcalcification found on diagnostic imaging of breast; D05.12 Intraductal carcinoma in situ of left breast; Z48.817 Encounter for surgical aftercare following surgery on the skin and subcutaneous tissue; Z98.890 Other specified postprocedural states; Z92.3 Personal history of irradiation; Z80.3 Family history of malignant neoplasm of breast

== ENCOUNTER → 2024-03-03 | Outpatient (CLI) | payer MEDICARE ==
--- NOTE | 2024-03-03 09:52 | USB ---
Reason for Exam: Clinical finding. Patient History: Menarche at age 13. First Full-Term at age 17. Hysterectomy at age 55. Postmenopausal. Breast cancer, left, age 67. Breast cancer, left, age 68. 04/22/2023, Lumpectomy on the Left side. 04/21/2023, Malignant MG pre op needle loc LT on the left side. 02/19/2023, Malignant MG stereo VAD BX LT on the left side. 2022, Radiation Therapy on the left side. Sister had breast cancer, age 68. Sister had breast cancer, age 55. Technique: Method: Targeted. Prior Study Comparison: 01/19/2023 Bilateral MG 3D screening mammo w/cad, [facility]. 01/26/2023 Left MG 3D work up w/cad LT, [facility]. 01/25/2024 Bilateral MG 3D diag mammo w/cad [facility], [facility]. Findings: The area of palpable concern of the left breast, the axilla of the left breast and the retroareolar of the left breast were scanned. There is a slightly hypoechoic heterogenous appearing mass area correlating with area in the mammogram. This measures 7 x 3.6 x 4.4 cm. No vascularity is identified. Complex hematoma is suspected. However, given the proximity to the biopsy site no comparison images to evaluate for interval change, other etiologies including recurrence should be considered. Biopsy of this area is recommended. Overall Assessment: Suspicious, BI-RAD 4 Management: Ultrasound Core Biopsy of the left breast. A clinical breast exam by your physician is recommended on an annual basis and results should be correlated with mammographic findings. This exam should not preclude additional follow-up of suspicious palpable abnormalities. Results were given to the patient verbally at the time of exam. Electronically signed and approved by: Edward Lowery D.O. Radiologis
== END | disposition home or self-care (01) ==
LOC: RADUSWWP 08:01
PROVIDERS: ATTEND Surgery
DX: N63.20 Unspecified lump in the left breast, unspecified quadrant (principal); Z78.0 Asymptomatic menopausal state; Z80.3 Family history of malignant neoplasm of breast

== ENCOUNTER → 2024-03-14 | Day surgery (SDC) | payer MEDICARE ==
--- NOTE | 2024-03-14 14:57 | USB ---
Findings: Initial scanning and review of patient's mammogram after excision of DCIS shows what appears to be a large postoperative seroma with some internal material, likely granulation tissue and chronic hematoma or other debris. Largest dimension 4.7 cm versus 7.0 cm, previously. Given the decreasing size, biopsy is being deferred at this time. Reassess at a 6 month follow-up. Findings and impression were discussed with the patient. Canceled left breast biopsy for suspected postoperative seroma, decreasing in size currently 4.7 cm versus 7.0 cm on 03/03/2024. Six-month follow-up left breast ultrasound and mammogram recommended. Management: Diagnostic Mammogram of the left breast in 6 months. Electronically signed and approved by: Luda Ruiz M.D. Radiologist
== END ==
LOC: RADUSWWP 12:37
PROVIDERS: ATTEND Surgery
DX: Z53.8 Procedure and treatment not carried out for other reasons (principal); N63.0 Unspecified lump in unspecified breast

== ENCOUNTER → 2024-03-28 | Outpatient (CLI) | payer MEDICARE ==
[2024-03-28 09:53] VITALS: BP 117/72; PULSE 65; RESP 16; TEMP 98.3
--- NOTE | 2024-03-28 09:57 | P.PN ---
Subjective Progress Note Date: 03/28/24 Subjective Progress Note Date: 03-28-24 Principal diagnosis: DCIS left breast [id number] DCIS left breast Larisa is a 68-year-old white female seen in consultation for Dr. Schuler regarding microcalcifications of concern in the left breast. She underwent a bi lateral mammogram on 01-19-23 after which additional views of the left breast was recommended. This was performed on . On these additional views indeterminate microcalcifications in the left breast central position were identified. These were considered suspicious and stereotactic core biopsy was recommended. She did not feel any lumps masses or nodules of concern in either breast. She had never had any surgery on her breast. She was not complaining of any trauma or infection in her breast. She was not complaining of any nipple discharge or skin changes. Sterotactic core biopsy was done on 02-19-23 and was + for DCIS, ER+, Pr-. She tolerated the biopsy without difficulty. 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 Her pathology showed a 4 mm DCIS and (-) SNB, She completed radiation on 07-01-23. She started on Raloxiphen and is tolerating this without difficulty, 60mg once daily. She is not complaining of any new lumps masses or nodules of concern., but she is able to feel an area of fullness at the lumpectomy site in the left breast Bilateral mammogram 01-25-24 BIRAD 2 Ultrasound of the left breast on 03-03-2024, this was personally reviewed with Dr. Lowery, there is concern that there is an organizing hematoma and not a total cystic component to the area of palpable fullness in the left breast; after review with Dr. Lowery it was recommended that an ultrasound core biopsy be attempted Attempted ultrasound core biopsy was performed on 03-14-2024. This revealed a seroma with some internal material likely granulation tissue and chronic hematoma the largest dimension was 4.7 cm versus 7 cm previously given the decr easing size biopsy was deferred Diagnostic mammogram of the left breast in 6 months recommended caffiene: 1 cup/day nicotien: none chocolate: occasional BCP: 4 years hormoens: none Family History: a family of 12 children with 6 sisters two sisters with breast cancer, dx in their 60's, no genetic testing father: lung cancer Hormonal History: menarche: 13 , breast fed: no, age at first : 18 menopause: hysterectomy at 57 left ovaries no cancer Surgical History: hysterectomy ankle right left lumpectomy and SNB for DCIS Medical History: hypothyroid SociaL History: nicotine: none alcohol: none drugs: none - Constitutional Constitutional: Denies chills, Denies fever - EENT Eyes: denies blurred vision, denies pain Ears: deny: decreased hearing, tinnitus Ears, nose, mouth and throat: Denies headache, Denies sore throat - Breasts Breasts: bilateral: as per HPI - Cardiovascular Cardiovascular: Denies chest pain, Denies shortness of breath - Respiratory Respiratory: Denies cough - Gastrointestinal Gastrointestinal: Denies abdominal pain, Denies diarrhea, Denies nausea, Denies vomiting - Genitourinary (Female) Genitourinary: Denies dysuria, Denies hematuria - Menstruation Menstruation: Reports postmenopausal - Musculoskeletal Musculoskeletal: Reports myalgias - Integumentary Integumentary: Denies pruritus, Denies rash - Neurological Neurological: Denies numbness, Denies weakness - Psychiatric Psychiatric: Denies anxiety, Denies depression - Endocrine Endocrine: Reports as per HPI - Hematologic/Lymphatic Comment: none - Allergic/Immunologic Allergic/Immunologic: Reports as per HPI Past Medical History Past Medical History: Thyroid Disorder History of Any Multi-Drug Resistant Organisms: None Reported Past Surgical History: Hysterectomy, Orthopedic Surgery Additional Past Surgical History / Comment(s): "fatty tumor" removed from leg at age 13 Past Anesthesia/Blood Transfusion Reactions: No Reported Reaction Past Psychological History: No Psychological Hx Reported Smoking Status: Never smoker Past Alcohol Use History: Rare Past Drug Use History: None Reported Medications and Allergies Home Medications Medication Instructions Recorded Confirmed Type Levothyroxine Sodium [Synthroid] 125 mcg PO DAILY 02/05/23 02/19/23 History Biotin [Biotin Disolve] 5,000 mcg PO DAILY 02/19/23 02/19/23 History Calcium Carbonate [Calcium] 600 mg PO DAILY 02/19/23 02/19/23 History Cholecalciferol [Vitamin D3 (25 25 mcg PO DAILY 02/19/23 02/19/23 History Mcg = 1000 Iu)] Cyanocobalamin (Vitamin B-12) 1,000 mcg PO DAILY 02/19/23 02/19/23 History [Vitamin B-12] Multivitamin [Multivitamins Adult 1 each PO DAILY 02/19/23 02/19/23 History Gummies] Zinc Gluconate [Zinc] 50 mg PO DAILY 02/19/23 02/19/23 History Allergies Allergy/AdvReac Type Severity Reaction Status Date / Time No Known Allergies Allergy Verified 02/19/23 07:32 Objective - Constitutional General appearance: Present: cooperative - EENT Eyes: Present: EOMI ENT: Present: hearing grossly normal - Neck Neck: Present: normal ROM - Respiratory Respiratory: bilateral: CTA - Cardiovascular Heart sounds: normal: S1, S2 - Integumentary Integumentary: Present: normal turgor - Musculoskeletal Musculoskeletal: Present: gait normal - Psychiatric Psychiatric: Present: A&O x's 3, appropriate affect, intact judgment & insight - Additional findings Additional findings: Bra size 34D Inspection: Bilateral grade 2/3 ptosis, asymmetry of the breast related to left breast lumpectomy and radiation treatment Palpation: Right breast: Multi-positional exam fibrocystic changes no dominant masses or nodules of concern Right axilla: No adenopathy of concern Left breast: Multi-positional exam fibrocystic changes no dominant masses or nodules of concern; post op and radiation changes with some fullness at the prior lumpectomy site, probable seroma Left axilla: No adenopathy of concern Assessment and Plan Assessment: Impression: Left breast DCIS ER + MI -; She is status post left breast lumpectomy, sentinel node biopsy, radiation therapy Patient on raloxifene 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 Schuler
== END ==
LOC: WWCWWP 09:36
PROVIDERS: ATTEND Surgery
DX: R92.8 Other abnormal and inconclusive findings on diagnostic imaging of breast (principal); R92.0 Mammographic microcalcification found on diagnostic imaging of breast; D05.12 Intraductal carcinoma in situ of left breast; Z48.817 Encounter for surgical aftercare following surgery on the skin and subcutaneous tissue; Z98.890 Other specified postprocedural states; Z92.3 Personal history of irradiation

== ENCOUNTER → 2024-09-12 | Outpatient (CLI) | payer MEDICARE ==
--- NOTE | 2024-09-12 09:56 | USB ---
Reason for Exam: Follow-up at short interval from prior study. Patient History: Menarche at age 13. First Full-Term at age 17. Hysterectomy at age 55. Postmenopausal. Breast cancer, left, age 67. Breast cancer, left, age 68. 04/22/2023, Lumpectomy on the Left side. 04/21/2023, Malignant MG pre op needle loc LT on the left side. 02/19/2023, Malignant MG stereo VAD BX LT on the left side. 03/14/2024, US discontinued breast bx LT on the left side. 2022, Radiation Therapy on the left side. Sister had breast cancer, age 68. Sister had breast cancer, age 55. Technique: Method: Targeted. Prior Study Comparison: 01/19/2023 Bilateral MG 3D screening mammo w/cad, [facility]. 01/26/2023 Left MG 3D work up w/cad LT, [facility]. 01/25/2024 Bilateral MG 3D diag mammo w/cad [facility], [facility]. Findings: The periareolar of the left breast, the axilla of the left breast and the retroareolar of the left breast were scanned. Targeted ultrasound 8:00 left breast including the subareolar region and axilla. Redemonstrated lobulated masslike area at the 8:00 periareolar region measuring 5.5 x 4.1 x 4.4 cm. This is in comparison to 7.0 x 4.4 x 2.6 cm is, previously. Very complex internal material with only small simple fluid areas within. No internal vascularity. Overall Assessment: Probably benign, BI-RAD 3 Management: Diagnostic Mammogram of both breasts in 4 months. Findings suggest ongoing very complex postsurgical seroma at the 8:00 lumpectomy site. Very thickened internal contents. Overall size is slightly smaller at 5.5 cm now versus 7.0 cm, previously. Ongoing follow-up can be performed. Results were given to the patient verbally at the time of exam. [facility], , 09/12/2024 9:44 AM. Electronically signed and approved by: Luda Ruiz M.D. Radiologist
== END | disposition home or self-care (01) ==
LOC: RADUSWWP 09:13
PROVIDERS: ATTEND Surgery
DX: Z85.3 Personal history of malignant neoplasm of breast (principal); Z78.0 Asymptomatic menopausal state; Z80.3 Family history of malignant neoplasm of breast

== ENCOUNTER → 2024-09-15 | Outpatient (CLI) | payer MEDICARE ==
[2024-09-15 08:41] VITALS: BP 121/75; PULSE 66; RESP 16; TEMP 97.4
--- NOTE | 2024-09-15 08:58 | P.PN ---
Subjective Progress Note Date: 09/15/24 Subjective Progress Note Date: 09-14-24 Principal diagnosis: DCIS left breast [id number] DCIS left breast Larisa is a 68-year-old white female seen in consultation for Dr. Schuler regarding microcalcifications of concern in the left breast. She underwent a b ilateral mammogram on 01-19-23 after which additional views of the left breast was recommended. This was performed on . On these additional views indeterminate microcalcifications in the left breast central position were identified. These were considered suspicious and stereotactic core biopsy was recommended. She did not feel any lumps masses or nodules of concern in either breast. She had never had any surgery on her breast. She was not complaining of any trauma or infection in her breast. She was not complaining of any nipple discharge or skin changes. Sterotactic core biopsy was done on 02-19-23 and was + for DCIS, ER+, Pr-. She tolerated the biopsy without difficulty. 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 Her pathology showed a 4 mm DCIS and (-) SNB, She completed radiation on 07-01-23. She started on Raloxiphen and is tolerating this without difficulty, 60mg once daily. She is not complaining of any new lumps masses or nodules of concern., but she is able to feel an area of fullness at the lumpectomy site in the left breast Bilateral mammogram 01-25-24 BIR[facility] 2 Ultrasound of the left breast on 03-03-2024, this was personally reviewed with Dr. Lowery, there is concern that there is an organizing hematoma and not a total cystic component to the area of palpable fullness in the left breast; after review with Dr. Lowery it was recommended that an ultrasound core biopsy be attempted Attempted ultrasound core biopsy was performed on 03-14-2024. This revealed a seroma with some internal material likely granulation tissue and chronic hematoma the largest dimension was 4.7 cm versus 7 cm previously given the dec reasing size biopsy was deferred Diagnostic mammogram of the left breast in 6 months recommended Following informed consent on 03-28-24 the area of concern in the left breast was prepped using alcohol. An 18-gauge needle on a 20 cc syringe was inserted into the area of fluctuance. Approximately 8 cc of serosanguineous fluid was obtained. There was not total resolution of the fullness which is most likely represents an organizing hematoma. And is going to follow-up in 6 months with a repeat left breast ultrasound She will follow-up sooner any questions or concerns ultrasound of the left breast on 09-12-24 reveals slightly smaller probable seroma, repeat bilateral mammogram in 4 months She stopped her roloxiphene secondary to hot flashes, she stopped about three months ago caffiene: 1 cup/day nicotien: none chocolate: occasional BCP: 4 years hormoens: none Family History: a family of 12 children with 6 sisters two sisters with breast cancer, dx in their 60's, no genetic testing father: lung cancer Hormonal History: menarche: 13 , breast fed: no, age at first : 18 menopause: hysterectomy at 57 left ovaries no cancer Surgical History: hysterectomy ankle right left lumpectomy and SNB for DCIS Medical History: hypothyroid SociaL History: nicotine: none alcohol: none drugs: none - Constitutional Constitutional: Denies chills, Denies fever - EENT Eyes: denies blurred vision, denies pain Ears: deny: decreased hearing, tinnitus Ears, nose, mouth and throat: Denies headache, Denies sore throat - Breasts Breasts: bilateral: as per HPI - Cardiovascular Cardiovascular: Denies chest pain, Denies shortness of breath - Respiratory Respiratory: Denies cough - Gastrointestinal Gastrointestinal: Denies abdominal pain, Denies diarrhea, Denies nausea, Denies vomiting - Genitourinary (Female) Genitourinary: Denies dysuria, Denies hematuria - Menstruation Menstruation: Reports postmenopausal - Musculoskeletal Musculoskeletal: Reports myalgias - Integumentary Integumentary: Denies pruritus, Denies rash - Neurological Neurological: Denies numbness, Denies weakness - Psychiatric Psychiatric: Denies anxiety, Denies depression - Endocrine Endocrine: Reports as per HPI - Hematologic/Lymphatic Comment: none - Allergic/Immunologic Allergic/Immunologic: Reports as per HPI Past Medical History Past Medical History: Thyroid Disorder History of Any Multi-Drug Resistant Organisms: None Reported Past Surgical History: Hysterectomy, Orthopedic Surgery Additional Past Surgical History / Comment(s): "fatty tumor" removed from leg at age 13 Past Anesthesia/Blood Transfusion Reactions: No Reported Reaction Past Psychological History: No Psychological Hx Reported Smoking Status: Never smoker Past Alcohol Use History: Rare Past Drug Use History: None Reported Medications and Allergies Home Medications Medication Instructions Recorded Confirmed Type Levothyroxine Sodium [Synthroid] 125 mcg PO DAILY 02/05/23 02/19/23 History Biotin [Biotin Disolve] 5,000 mcg PO DAILY 02/19/23 02/19/23 History Calcium Carbonate [Calcium] 600 mg PO DAILY 02/19/23 02/19/23 History Cholecalciferol [Vitamin D3 (25 25 mcg PO DAILY 02/19/23 02/19/23 History Mcg = 1000 Iu)] Cyanocobalamin (Vitamin B-12) 1,000 mcg PO DAILY 02/19/23 02/19/23 History [Vitamin B-12] Multivitamin [Multivitamins Adult 1 each PO DAILY 02/19/23 02/19/23 History Gummies] Zinc Gluconate [Zinc] 50 mg PO DAILY 02/19/23 02/19/23 History Allergies Allergy/AdvReac Type Severity Reaction Status Date / Time No Known Allergies Allergy Verified 02/19/23 07:32 Objective - Vital Signs Vital signs: Vital Signs Temp 97.4 F L 09/15/24 08:38 Pulse 66 09/15/24 08:38 Resp 16 09/15/24 08:38 BP 121/75 09/15/24 08:38 Pulse Ox 98 09/15/24 08:38 FiO2 Intake & Output 09/14/24 09/15/24 09/15/24 18:59 06:59 18:59 Weight 65.771 kg - Constitutional General appearance: Present: cooperative - EENT Eyes: Present: EOMI ENT: Present: hearing grossly normal - Neck Neck: Present: normal ROM - Respiratory Respiratory: bilateral: CTA - Cardiovascular Heart sounds: normal: S1, S2 - Integumentary Integumentary: Present: normal turgor - Musculoskeletal Musculoskeletal: Present: gait normal - Psychiatric Psychiatric: Present: A&O x's 3, appropriate affect, intact judgment & insight - Additional findings Additional findings: Bra size 34D Inspection: Bilateral grade 2/3 ptosis, asymmetry of the breast related to left breast lumpectomy and radiation treatment Palpation: Right breast: Multi-positional exam fibrocystic changes no dominant masses or nodules of concern Right axilla: No adenopathy of concern Left breast: Multi-positional exam fibrocystic changes no dominant masses or nodules of concern; post op and radiation changes with some fullness at the prior lumpectomy site, probable seroma Left axilla: No adenopathy of concern Assessment and Plan Assessment: Impression: Left breast DCIS ER + ND -; She is status post left breast lumpectomy, sentinel node biopsy, radiation therapy Patient on raloxifene 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 An 18-gauge needle on a 20 cc syringe was used to aspirate 6 cc of dark-colored fluid. This is most likely from a resolving hematoma. There was decrease in size of the area of fullness. The patient tolerated this without difficulty. Cc: Dr. Schuler
== END ==
LOC: WWCWWP 08:27
PROVIDERS: ATTEND Surgery
DX: D05.12 Intraductal carcinoma in situ of left breast (principal); R92.8 Other abnormal and inconclusive findings on diagnostic imaging of breast; Z85.3 Personal history of malignant neoplasm of breast; Z98.890 Other specified postprocedural states; Z17.0 Estrogen receptor positive status [ER+]; Z17.22 Progesterone receptor negative status

== ENCOUNTER → 2025-01-25 | Outpatient (CLI) | payer MEDICARE ==
--- NOTE | 2025-01-25 08:33 | MM ---
Reason for Exam: Hx of breast cancer, conservation therapy. Last screening mammogram was performed 12 month(s) ago. Patient History: Menarche at age 13. First Full-Term at age 17. Hysterectomy at age 55. Postmenopausal. Breast cancer, left, age 67. Breast cancer, left, age 68. 04/22/2023, Lumpectomy on the Left side. 04/21/2023, Malignant MG pre op needle loc LT on the left side. 02/19/2023, Malignant MG stereo VAD BX LT on the left side. 03/14/2024, US discontinued breast bx LT on the left side. 2022, Radiation Therapy on the left side. Sister had breast cancer, age 68. Sister had breast cancer, age 55. Tissue Density: There are scattered areas of fibroglandular density. Findings: Analyzed By CAD. Postoperative changes of left-sided lumpectomy again noted with a well-circumscribed mass felt to reflect a seroma is smaller in size and currently measures 6.5 x 4.0 cm versus 7.6 x 4.9 cm previously. No right breast mass is seen. No suspicious microcalcifications. Overall Assessment: Benign, BI-RAD 2 Management: Diagnostic Mammogram of both breasts in 1 year. . Results were given to the patient verbally at the time of exam. Patient should continue monthly self-breast exams. A clinical breast exam by your physician is recommended on an annual basis. This exam should not preclude additional follow-up of suspicious palpable abnormalities. Note on Natasha scores and lifetime risk: 1. A Natasha score greater than 3% is considered moderate risk. If this is the case, consider specialist referral to assess eligibility for a risk reducing agent. 2. If overall lifetime risk for the development of breast cancer is 20% or higher, the patient may qualify for future screening with alternating mammogram and breast MRI. [facility], , 01/25/2025 8:22 AM. Electronically signed and approved by: Tc Jesus M.D. Radiologis
== END | disposition home or self-care (01) ==
LOC: RADMAMWWP 07:46
PROVIDERS: ATTEND Surgery
DX: R92.8 Other abnormal and inconclusive findings on diagnostic imaging of breast (principal); R92.323 Mammographic fibroglandular density, bilateral breasts; Z78.0 Asymptomatic menopausal state; Z85.3 Personal history of malignant neoplasm of breast; Z80.3 Family history of malignant neoplasm of breast
CPT/HCPCS: 77066; G0279; 77062

== ENCOUNTER → 2025-01-27 | Outpatient (CLI) | payer MEDICARE ==
[2025-01-27 09:03] VITALS: BP 121/73; PULSE 56; RESP 17; TEMP 97.7
--- NOTE | 2025-01-27 09:33 | P.PN ---
Subjective Progress Note Date: 01/27/25 Principal diagnosis: left breast DCIS 202201-27-25 Subjective Progress Note Date: Principal diagnosis: DCIS left breast [id number] DCIS left breast Larisa is a 69-year-old white female seen initially in consultation for Dr. Schuler regarding microcalcifications of concern in the left breast. She underwent a bilateral mammogram on 01-19-23 after which additional views of the left breast was recommended. This was performed on . On these additional views indeterminate microcalcifications in the left breast central position were identified. These were considered suspicious and stereotactic core biopsy was recommended. She did not feel any lumps masses or nodules of concern in either breast. She had never had any surgery on her breast. She was not complaining of any trauma or infection in her breast. She was not complaining of any nipple discharge or skin changes. Sterotactic core biopsy was done on 02-19-23 and was + for DCIS, ER+, Pr-. She tolerated the biopsy without difficulty. 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 Her pathology showed a 4 mm DCIS and (-) SNB, She completed radiation on 07-01-23. She started on Raloxiphen initially was tolerating this without difficulty, 60mg once daily. Bilateral mammogram 01-25-24 BIRAD 2 Ultrasound of the left breast on 03-03-2024, this was personally reviewed with Dr. Lowery, there is concern that there is an organizing hematoma and not a total cystic component to the area of palpable fullness in the left breast; after review with Dr. Lowery it was recommended that an ultrasound core biopsy be attempted Attempted ultrasound core biopsy was performed on 03-14-2024. This revealed a seroma with some internal material likely granulation tissue and chronic hematoma the largest dimension was 4.7 cm versus 7 cm previously given the decreasing size biopsy was deferred Diagnostic mammogram of the left breast in 6 months recommended Following informed consent on 03-28-24 the area of concern in the left breast was prepped using alcohol. An 18-gauge needle on a 20 cc syringe was inserted into the area of fluctuance. Approximately 8 cc of serosanguineous fluid was obtained. There was not total resolution of the fullness which is most likely represents an organizing hematoma. And is going to follow-up in 6 months with a repeat left breast ultrasound She will follow-up sooner any questions or concerns ultrasound of the left breast on 09-12-24 reveals slightly smaller probable seroma, repeat bilateral mammogram in 4 months She stopped her roloxiphene secondary to hot flashes, she stopped about three months ago bilateral mammogram on 01-25-[address] [facility] [address] Harley 11-16-24 she has stopped her Raloxiphen She is not complaining of any new lumps masses or nodules of concern in either breast, she does state that she has a rash under both breast which has been treated before as a fungal infection with resolution caffiene: 1 cup/day nicotien: none chocolate: occasional BCP: 4 years hormoens: none Family History: a family of 12 children with 6 sisters two sisters with breast cancer, dx in their 60's, no genetic testing father: lung cancer Hormonal History: menarche: 13 , breast fed: no, age at first : 18 menopause: hysterectomy at 57 left ovaries no cancer Surgical History: hysterectomy ankle right left lumpectomy and SNB for DCIS Medical History: hypothyroid SociaL History: nicotine: none alcohol: none drugs: none - Constitutional Constitutional: Denies chills, Denies fever - EENT Eyes: denies blurred vision, denies pain Ears: deny: decreased hearing, tinnitus Ears, nose, mouth and throat: Denies headache, Denies sore throat - Breasts Breasts: bilateral: as per HPI - Cardiovascular Cardiovascular: Denies chest pain, Denies shortness of breath - Respiratory Respiratory: Denies cough - Gastrointestinal Gastrointestinal: Denies abdominal pain, Denies diarrhea, Denies nausea, Denies vomiting - Genitourinary (Female) Genitourinary: Denies dysuria, Denies hematuria - Menstruation Menstruation: Reports postmenopausal - Musculoskeletal Musculoskeletal: Reports myalgias - Integumentary Integumentary: Denies pruritus, Denies rash - Neurological Neurological: Denies numbness, Denies weakness - Psychiatric Psychiatric: Denies anxiety, Denies depression - Endocrine Endocrine: Reports as per HPI - Hematologic/Lymphatic Comment: none - Allergic/Immunologic Allergic/Immunologic: Reports as per HPI Past Medical History Past Medical History: Thyroid Disorder History of Any Multi-Drug Resistant Organisms: None Reported Past Surgical History: Hysterectomy, Orthopedic Surgery Additional Past Surgical History / Comment(s): "fatty tumor" removed from leg at age 13 Past Anesthesia/Blood Transfusion Reactions: No Reported Reaction Past Psychological History: No Psychological Hx Reported Smoking Status: Never smoker Past Alcohol Use History: Rare Past Drug Use History: None Reported Medications and Allergies Home Medications Medication Instructions Recorded Confirmed Type Levothyroxine Sodium [Synthroid] 125 mcg PO DAILY 02/05/23 02/19/23 History Biotin [Biotin Disolve] 5,000 mcg PO DAILY 02/19/23 02/19/23 History Calcium Carbonate [Calcium] 600 mg PO DAILY 02/19/23 02/19/23 History Cholecalciferol [Vitamin D3 (25 25 mcg PO DAILY 02/19/23 02/19/23 History Mcg = 1000 Iu)] Cyanocobalamin (Vitamin B-12) 1,000 mcg PO DAILY 02/19/23 02/19/23 History [Vitamin B-12] Multivitamin [Multivitamins Adult 1 each PO DAILY 02/19/23 02/19/23 History Gummies] Zinc Gluconate [Zinc] 50 mg PO DAILY 02/19/23 02/19/23 History Allergies Allergy/AdvReac Type Severity Reaction Status Date / Time No Known Allergies Allergy Verified 02/19/23 07:32 Objective - Vital Signs Vital signs: Vital Signs Temp 97.7 F 01/27/25 09:01 Pulse 56 L 01/27/25 09:01 Resp 17 01/27/25 09:01 BP 121/73 01/27/25 09:01 Pulse Ox 95 01/27/25 09:01 FiO2 Intake & Output 01/26/25 01/27/25 01/27/25 18:59 06:59 18:59 Weight 64.864 kg - Constitutional General appearance: Present: cooperative - EENT Eyes: Present: EOMI ENT: Present: hearing grossly normal - Neck Neck: Present: normal ROM - Respiratory Respiratory: bilateral: CTA - Cardiovascular Rhythm: regular Heart sounds: normal: S1, S2 - Integumentary Integumentary: Present: normal turgor - Musculoskeletal Musculoskeletal: Present: gait normal - Psychiatric Psychiatric: Present: A&O x's 3, appropriate affect, intact judgment & insight - Additional findings Additional findings: Bra size 34D Inspection: Bilateral grade 2/3 ptosis, asymmetry of the breast related to left breast lumpectomy and radiation treatment Palpation: Right breast: Multi-positional exam fibrocystic changes no dominant masses or nodules of concern Right axilla: No adenopathy of concern Left breast: Multi-positional exam fibrocystic changes no dominant masses or nodules of concern; post op and radiation changes with some fullness at the prior lumpectomy site, probable seroma Left axilla: No adenopathy of concern Fungal infection under both breast Assessment and Plan Assessment: Impression: Left breast DCIS ER + MA -; She is status post left breast lumpectomy, sentinel node biopsy, radiation therapy Patient stopped raloxifene 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 Harley Aspiration seroma left breast continue to follow radiation oncology Following informed consent the area of concern was prepped using alcohol. An 18-gauge needle on a 20 cc syringe was used to aspirate 7 cc of dark-colored fluid. This is most likely from a resolving hematoma. There was decrease in size of the area of fullness. The patient tolerated this without difficulty. Cc: Dr. Schuler
== END ==
LOC: WWCWWP 08:50
PROVIDERS: ATTEND Surgery
DX: D05.12 Intraductal carcinoma in situ of left breast (principal); Z98.890 Other specified postprocedural states